=== PATIENT | female | born 1950 | race Caucasian/White ===

== ENCOUNTER 2016-08-17 17:27 | Inpatient (IN) ==
[2016-08-17] MEDS ORDERED: methylPREDNISolone 125 MG/2 ML VIAL IVP ONE (17:52)
[2016-08-17] MEDS ORDERED: Ipratropium/Albuterol Neb 3 ML IH ONE (17:52)
--- NOTE | 2016-08-17 17:57 | Emergency Department Note ---
Disposition Clinical Impression: Acute exacerbation of chronic obstructive airways disease Congestive heart failure Qualifiers: Congestive heart failure type: unspecified congestive heart failure type Congestive heart failure chronicity: acute Qualified Code(s): I50.9 - Heart failure, unspecified Disposition: Admitted As Inpatient Condition: Fair Referrals: Flor Nassar CNP [Primary Care Provider] - Forms: ED Satisfaction Letter Time of Disposition: 18:28 SOB HPI - General Chief Complaint: ED Shortness of Breath/Dyspnea Stated Complaint: jose Time Seen by Provider: 08/17/16 17:28 Source: patient Mode of arrival: EMS Limitations: no limitations Nursing Notes Reviewed: Yes Vital Signs Reviewed: Yes - History of Present Illness 65-year-old COPD comes in complaining of increasing shortness of breath. Thinks that she may have pneumonia. Pt Subjective Complaint: shortness of breath, cough Onset (ago): day(s) Severity: moderate Consistency/Duration: constant Improves with: nothing Worsens with: exertion Known history of: COPD Associated symptoms: Reports: cough, wheezing. Denies: chest pain, fever Treatment prior to arrival: none - Related Data Home Medications Medication Instructions Recorded Confirmed Albuterol Sulfate [Proair Hfa] 2 puff IH Q4H PRN 09/16/15 07/04/16 Amlodipine [Norvasc] 5 mg PO QAM 09/16/15 07/04/16 Budesonide/Formoterol 160/4.5 2 puff IH BIDR 09/16/15 07/04/16 [Symbicort 160/4.5] Diazepam [Valium] 5 mg PO HS 09/16/15 07/04/16 Furosemide [Lasix] 40 mg PO QAM 09/16/15 07/04/16 Ipratropium/Albuterol Sulfate 4 gm IH QID PRN 09/16/15 07/04/16 [Combivent Respimat Inhal Cascade] Lansoprazole [Prevacid] 30 mg PO BID 09/16/15 07/04/16 Oxycodone HCl/Acetaminophen 1 tab PO Q4H PRN 09/16/15 07/04/16 [Percocet 10-325 mg Tablet] Potassium Chloride [K-Tab ER] 10 meq PO QPM 09/16/15 07/04/16 Pregabalin [Lyrica] 150 mg PO TID 09/16/15 07/04/16 Roflumilast [Daliresp] 500 mcg PO QAM 09/16/15 07/04/16 Ropinirole HCl [Requip] 2 mg PO 1-2XD 09/16/15 07/04/16 Tiotropium [Spiriva] 18 mcg IH DAILY 09/16/15 07/04/16 Allergies Allergy/AdvReac Type Severity Reaction Status Date / Time No Known Allergies Allergy Verified 08/17/16 17:38 Constitutional: Denies: fever, chills, weakness, weight change Eyes: Denies: eye pain, eye discharge, vision change ENT ED: Denies: ear pain, throat pain, dental pain, hearing loss, epistaxis, congestion, dysphagia Cardiovascular: Denies: chest pain, palpitations, dyspnea on exertion, edema, syncope Respiratory: Reports: cough, dyspnea, wheezes. Denies: hemoptysis, stridor Gastrointestinal: Denies: abdominal pain, nausea, vomiting, diarrhea, constipation, hematemesis, melena, hematochezia Genitourinary: Denies: dysuria, frequency, hematuria, discharge Musculoskeletal: Denies: back pain, neck pain, arthralgia, myalgia Integumentary: Denies: rash, abrasion, lesions Neurological: Denies: headache, weakness, numbness, paresthesias, confusion, abnormal gait, vertigo Psychiatric: Denies: anxiety, depression, suicidal thoughts, homicidal thoughts , auditory hallucinations, visual hallucinations Endocrine: Denies: fatigue Hematological/Lymphatic: Denies: easy bleeding, easy bruising Allergic/Immunologic: Denies: facial swelling, urticaria Past Medical History - Past Medical History Medical history: Reports: asthma, COPD, hyperlipidemia, hypertension Surgical history: Reports: no surgical history Psychiatric history: Reports: anxiety, depression MANIFOLD OPERATOR history: Reports: no MANIFOLD OPERATOR history - Social History Smoking Status: Current every day smoker Smokeless Tobacco Status: No Alcohol use: Reports: rarely, occasionally Drug use: Reports: none Physical Exam - General General appearance: alert, in no apparent distress - Head Head exam: atraumatic, normocephalic, normal inspection - Eye Eye exam: Present: normal appearance, PERRL, EOMI - ENT ENT exam: normal exam, normal oropharynx, mucous membranes moist - Neck Neck exam: Present: normal inspection, full ROM, trachea midline - Chest Chest inspection: Present: normal inspection, symmetric chest wall rise - Respiratory Respiratory exam: Present: wheezes, accessory muscle use, prolonged expiratory phase - Cardiovascular Cardiovascular exam: Present: regular rate, normal rhythm, normal heart sounds - Abdominal Exam Abdominal exam: Present: soft, Non-Tender. Absent: tenderness, distention, guarding, rebound, rigidity - Extremities Exam Extremities exam: Present: normal inspection, full ROM. Absent: tenderness, pedal edema - Expanded Lower Extremity Exam Neurovascular/Tendon exam: Absent: motor deficit, sensory deficit, tendon deficit Gait: observed and normal - Back Exam Back exam: Present: normal inspection, full ROM. Absent: tenderness - Neurological Exam Neurological exam: Present: alert, oriented X3 - Psychiatric Psychiatric exam: Present: normal affect, normal mood - Skin Skin exam: Present: warm, dry, intact, normal color Course - Reevaluation(s) Reevaluation #1: 65-year-old comes in with COPD exacerbation. Patient's given breathing treatments steroids and some improvement. Chest x-ray shows some mild congestion with a slight elevation in her BNP Lasix and IV antibiotics. She will be admitted. Time: 18:58 - Consultations Consultation #1: Discussed with Dr. Terrazas, admit. Time: 18:56 Vital Signs Temperature 98.0 F 08/17/16 17:35 Pulse Rate 80 08/17/16 17:35 Respiratory Rate 22 08/17/16 17:35 Blood Pressure 143/78 08/17/16 17:35 O2 Sat by Pulse Oximetry 92 L 08/17/16 17:35 Temperature 98.0 F 08/17/16 17:35 Pulse Rate 80 08/17/16 17:35 Respiratory Rate 16 08/17/16 18:14 Blood Pressure 143/78 08/17/16 17:35 O2 Sat by Pulse Oximetry 93 L 08/17/16 18:14 Oxygen Delivery Oxygen Delivery Room Air Shortness of Breath/Dyspnea - Lab Data Result diagrams: 08/17/16 17:50 08/17/16 17:50 Lab Results 08/17/16 08/17/16 08/17/16 Range/Units 17:50 17:50 17:50 WBC 6.4 (4.3-11.1) K/mcL RBC 4.02 (3.82-4.97) M/mcL Hgb 12.1 (11.5-15.4) g/dL Hct 38.8 (35.3-44.9) % MCV 96.5 (83.0-100.0) fL MCH 30.1 (28.0-33.3) pg MCHC 31.2 L (31.6-35.5) g/dL RDW 14.3 (11.5-14.5) % Plt Count 199 (140-400) K/mcL MPV 11.5 (9.4-12.4) fL Immature Gran % 0.8 (0-4) % Seg Neutrophils % 65.6 % Lymphocytes % 16.2 % Monocytes % 13.7 % Eosinophils % 3.1 % Basophils % 0.6 % Neutrophils # 4.2 (1.6-8.9) K/mcL Lymphocytes # 1.0 (0.6-4.6) K/mcL Monocytes # 0.9 (0.0-1.3) K/mcL Eosinophils # 0.2 (0.0-0.6) K/mcL Basophils # 0.0 (0.0-0.2) K/mcL PT 10.8 (9.4-12.1) Seconds INR 1.0 APTT 24.4 L (26.0-36.0) Seconds Sodium 136 (136-145) mEq/L Potassium 3.4 L (3.5-4.5) mEq/L Chloride 92 L (98-109) mEq/L Carbon Dioxide 34 H (19-29) mEq/L BUN 9 (7-20) mg/dL Creatinine 0.70 (0.57-1.11) mg/dL Est GFR ( Amer) > 60 (> 60) Est GFR (Non-Af Amer) > 60 (> 60) BUN/Creatinine Ratio 13 (6-26) Glucose 96 (70-99) mg/dL Calculated Osmolality 281 (280-300) Lactic Acid (0.5-2.2) mmol/L Calcium 9.2 (8.6-10.8) mg/dL Troponin I (0-0.03) ng/mL B-Natriuretic Peptide (0-100) pg/mL 08/17/16 08/17/16 08/17/16 Range/Units 17:50 17:50 18:33 WBC (4.3-11.1) K/mcL RBC (3.82-4.97) M/mcL Hgb (11.5-15.4) g/dL Hct (35.3-44.9) % MCV (83.0-100.0) fL MCH (28.0-33.3) pg MCHC (31.6-35.5) g/dL RDW (11.5-14.5) % Plt Count (140-400) K/mcL MPV (9.4-12.4) fL Immature Gran % (0-4) % Seg Neutrophils % % Lymphocytes % % Monocytes % % Eosinophils % % Basophils % % Neutrophils # (1.6-8.9) K/mcL Lymphocytes # (0.6-4.6) K/mcL Monocytes # (0.0-1.3) K/mcL Eosinophils # (0.0-0.6) K/mcL Basophils # (0.0-0.2) K/mcL PT (9.4-12.1) Seconds INR APTT (26.0-36.0) Seconds Sodium (136-145) mEq/L Potassium (3.5-4.5) mEq/L Chloride (98-109) mEq/L Carbon Dioxide (19-29) mEq/L BUN (7-20) mg/dL Creatinine (0.57-1.11) mg/dL Est GFR ( Amer) (> 60) Est GFR (Non-Af Amer) (> 60) BUN/Creatinine Ratio (6-26) Glucose (70-99) mg/dL Calculated Osmolality (280-300) Lactic Acid 0.6 (0.5-2.2) mmol/L Calcium (8.6-10.8) mg/dL Troponin I 0.01 (0-0.03) ng/mL B-Natriuretic Peptide 205 H (0-100) pg/mL - EKG Data EKG attestation: Yes I reviewed and interpreted this EKG. EKG shows normal: Reports: sinus rhythm Rate: Reports: normal Rhythm: Reports: NSR Interpretation: Reports: no acute changes
[2016-08-17 18:04] LABS: Basophils % 0.6 %; Eosinophils # 0.2 K/mcL (0.0-0.6); Eosinophils % 3.1 %; Hematocrit 38.8 % (35.3-44.9); Hemoglobin 12.1 g/dL (11.5-15.4); Immature Granulocytes % 0.8 % (0-4); Lymphocytes % 16.2 %; Mean Corpuscular HGB Conc 31.2 g/dL (31.6-35.5); Mean Corpuscular Hemoglobin 30.1 pg (28.0-33.3); Mean Corpuscular Volume 96.5 fL (83.0-100.0); Mean Platelet Volume 11.5 fL (9.4-12.4); Monocytes # 0.9 K/mcL (0.0-1.3); Monocytes % 13.7 %; Neutrophils # 4.2 K/mcL (1.6-8.9); Platelet Count 199 K/mcL (140-400); Red Blood Count 4.02 M/mcL (3.82-4.97); Red Cell Distribution Width 14.3 % (11.5-14.5); Segmented Neutrophils % 65.6 %
[2016-08-17 18:09] LABS: Prothrombin Time 10.8 Seconds (9.4-12.1)
[2016-08-17 18:12] LABS: Activated Partial Thrombo Time 24.4 Seconds (26.0-36.0)
[2016-08-17 18:16] LABS: BUN/Creatinine Ratio 13 (6-26); Blood Urea Nitrogen 9 mg/dL (7-20); Calcium 9.2 mg/dL (8.6-10.8); Carbon Dioxide 34 mEq/L (19-29); Chloride 92 mEq/L (98-109); Glucose 96 mg/dL (70-99); Osmolality,Calculated 281 (280-300); Potassium 3.4 mEq/L (3.5-4.5); Sodium 136 mEq/L (136-145); eGFR For African Americans > 60 (> 60); eGFR For Non-African Americans > 60 (> 60)
[2016-08-17] MEDS ORDERED: Furosemide 40 MG/4 ML VIAL IVP ONE (18:48)
[2016-08-17] MEDS ORDERED: Levofloxacin 750 MG/150 ML 750 MG/150 ML BAG IVPB ONE (18:57)
[2016-08-17] MEDS ORDERED: Naloxone 0.4 MG/ML INJ IVP PRN (21:41)
[2016-08-17] MEDS ORDERED: Albuterol 2.5 MG/3 ML NEBULIZER IH PRN (21:55)
--- NOTE | 2016-08-17 22:19 | Internal Med History&Physical ---
<Simona Gutierrez - Last Filed: 08/17/16 22:10> Date of Encounter: 08/17/16 Time of Encounter: 21:30 Assessment and Plan (1) Acute diastolic (congestive) heart failure Current visit: Yes Status: Acute 1 echo 2015-EF 65% moderate diastolic dysfunction. Patient presented with increasing shortness of breath lower extremity edema BNP was 205 chest x-ray with coronary edema. Oxygen as needed to maintain SPO2 greater than 92% 2 Lasix IV 20 mg twice a day 3. Intake and output daily weights 4. Low-sodium diet, 1500 mL fluid restriction (2) Acute exacerbation of chronic obstructive airways disease Current visit: Yes Status: Acute 1 patient is having increasing shortness of breath according increase oxygen usage asterixis, 1% she has audible wheezes. She seemed Solu-Medrol in the ER will continue with 40 mg IV and taper 2 oxygen as needed and maintain SP 292% 3 bronchodilators 4 continue with daily resp 5 encourage patient to stop smoking 6 Levaquin (3) DVT prophylaxis Current visit: No Status: Acute 1 heparin subcutaneous (4) HOWARD (obstructive sleep apnea) Current visit: No Status: Acute 1 we will continue with CPAP at night (5) Tobacco abuse Current visit: Yes Status: Acute 1 encouraged patient to stop smoking-nicotine patch Internal Medicine - H&P: HPI Chief complaint: SOB Admitted From: Home Plans for Post Hospital Care: Home History of present illness: Ms. Barrera is a 65 year old female with a past medical history of hypertension COPD oxygen dependent HOWARD aortic aneurysm tobacco abuse. Patient has been experiencing increasing source of breath on exertion for the past 5-6 days she has required increased oxygen use. She has been using breathing treatments and increasing oxygen from 2-1/2 L to 4 L with little relief. She has had a productive cough with brown sputum subjective fever and swelling in lower extremities. She denies any nausea vomiting or diarrhea chest pain or abdominal pain. She was brought to the emergency department for further workup and evaluation on presentation patient's oxygen saturation was low 90s she was given breathing treatments as well as Solu-Medrol IV. Chest x-ray did reveal mildly enlarged cardiac silhouette with prominent pulmonary vascular mild patchy bilateral opacifications possibly represent pulmonary edema. Work revealed BNP of 205 no leukocytosis some hypokalemia potassium 3.4. Troponin was negative. She was given IV Lasix as well as IV antibiotics and was admitted for further workup and evaluation. Presently the patient does have a faint audible wheeze, and lower extremity swelling. Family member at bedside reports the patient was receiving Lasix and hydrochlorothiazide however recently her Lasix was discontinued. Lung murillo have scattered wheezes throughout she is on 4 L nasal cannula oxygen saturation 91-92% She denies any chest pain or shortness of breath this time, rest of vital signs are stable. I will repeat his case with who agrees with plan Past Med Surg Social Fam HX - Past Medical History Medical history: asthma, COPD, hyperlipidemia, hypertension Psychiatric history: anxiety, depression - Past Surgical History Surgical History: no surgical history - Social History Smoking Status: Current every day smoker Packs per day: 1-2 Smokeless Tobacco Status: No Alcohol use: rarely, occasionally Drug use: none - Family History Mother Adopted: No Living Status: Hx Family Cardiac Disorders: No Hx Family Respiratory Disorders: No Hx Family Cancer: No Internal Medicine - H&P: Meds Albuterol Sulfate [Proair Hfa] 2 puff IH Q4H PRN 09/16/15 [History] Amlodipine [Norvasc] 5 mg PO QAM 09/16/15 [History] Budesonide/Formoterol 160/4.5 [Symbicort 160/4.5] 2 puff IH BIDR 09/16/15 [ History] Lansoprazole [Prevacid] 30 mg PO BID 09/16/15 [History] Oxycodone HCl/Acetaminophen [Percocet 10-325 mg Tablet] 1 tab PO Q4H PRN [History] Potassium Chloride [K-Tab ER] 10 meq PO QPM 09/16/15 [History] Pregabalin [Lyrica] 150 mg PO TID 09/16/15 [History] Roflumilast [Daliresp] 500 mcg PO QAM 09/16/15 [History] Tiotropium [Spiriva] 18 mcg IH DAILY 09/16/15 [History] Albuterol Neb [Proventil Neb] 2.5 mg IH Q4H PRN 08/17/16 [History] ClonazePAM [Klonopin] 1 mg PO DAILY 08/17/16 [History] Docusate [Colace] 100 mg PO BID PRN 08/17/16 [History] Hydrochlorothiazide 25 mg PO DAILY 08/17/16 [History] Loratadine [Claritin] 10 mg PO DAILY 08/17/16 [History] PredniSONE 5 mg PO DAILY 08/17/16 [History] Ropinirole [Requip] 3 mg PO HS 08/17/16 [History] Simvastatin [Zocor] 40 mg PO HS 08/17/16 [History] Allergies No Known Allergies Allergy (Verified 08/17/16 17:38) All Systems PM: A 10-system review of systems was performed and is negative for pertinent findings except as documented above in the HPI. - Constitutional Constitutional: fatigue, fever(s) - Cardiovascular Cardiovascular ROS IM: dyspnea on exertion - Respiratory Respiratory: cough, dyspnea on exertion, wheezing, change in phlegm color - Gastrointestinal Gastrointestinal: no abdominal pain, no diarrhea, no hematemesis, no hematochezia, no melena, no nausea, no vomiting - Genitourinary Genitourinary: no change in urinary stream, no dysuria, no flank pain, no hematuria - Musculoskeletal Musculoskeletal ROS IM: back pain - Integumentary Integumentary IM: no rash, no unusual bruising - Neurological Neurological ROS: no confusion, no convulsions, no focal weakness, no numbness, no tingling, no tremor(s) - Constitutional Vitals: Temp Pulse Resp BP Pulse Ox 97.6 F 87 18 132/76 91 L 08/17/16 20:19 08/17/16 20:19 08/17/16 20:19 08/17/16 20:19 08/17/16 20:19 General appearance: Present: A&O X 3, obese, answers questions appropriately - Head Head exam: Present: atraumatic, normocephalic - Neck Neck exam general surgery: Present: supple, trachea midline. Absent: lymphadenopathy - Respiratory Respiratory exam: Present: wheezes. Absent: accessory muscle use, rales, rhonchi Additional comments: Audible wheezes - Cardiovascular Cardiovascular exam: Present: RRR, +S1, +S2. Absent: diastolic murmur, gallop, rubs, systolic murmur - GI/Abdominal GI/Abdominal exam: Present: normal bowel sounds, soft, no peritoneal signs. Absent: distended, tenderness - Extremities Exam Extremities exam: Present: pedal edema, warm, radial pulses palpable and symetrical. Absent: calf tenderness, cyanotic Additional comments: +2 pitting edema to right lower extremity +1 edema to left lower extremity - Neurological Exam Neurological exam: Present: CN II-XII intact, oriented X3, no focal deficits. Absent: pronater drift, facial droop, speech deficit - Skin Skin exam: Present: dry, intact Internal Med - H&P Results - Labs CBC & Chem 7: 08/17/16 17:50 08/17/16 17:50 - EKG Data EKG shows normal: sinus rhythm - EKG Data Prior EKG available for review: yes When compared to previous EKG: there is no significant change Interpretation IM: normal EKG EKG comments: 08/17/16 22:[address] Doss - Diagnostic Studies Chest x-ray Additional comments: Per radiology read-mildly enlarged cardiac silhouette with prominence of the pulmonary vasculature mild partially bilateral opacification possibly representing pulmonary edema 2 small left pleural effusion is difficult to exclude <Keyla Doss - Last Filed: 08/19/16 11:36> Date of Encounter: 08/17/16 Internal Medicine - H&P: HPI History of present illness: Ms. Barrera is a 65 year old female All Systems PM: A 10-system review of systems was performed and is negative for pertinent findings except as documented above in the HPI. - Constitutional Vitals: Temp Pulse Resp BP Pulse Ox 97.8 F 82 17 142/82 91 L 08/19/16 08:01 08/19/16 08:01 08/19/16 08:01 08/19/16 08:01 08/19/16 08:01 Internal Med - H&P Results - Labs CBC & Chem 7: 08/18/16 03:57 08/19/16 03:16 Labs: BMP 08/19/16 03:16 Sodium 141 Potassium 4.3 Chloride 95 L Carbon Dioxide 37 H BUN 19 Creatinine 0.75 Glucose 140 H Calcium 9.1 - Impressions ITS Impressions Chest CT 08/19/16 09:00 IMPRESSION: 1. Bronchial wall thickening in the left lower lobe associated with a consolidation suspicious for bronchitis. 2. Stable mild cardiomegaly. 3. Coronary artery disease. 4. Emphysema. 5. Old left anterior healed rib fractures and subacute right lateral eighth rib fracture. D/ / 08/19/2016 09:41:25 Owen Noland MD / trent Interpreting Provider: Owen Noland MD - Attending Attestation Medical decision-making was reviewed with the COMPRESSOR MECH[employer]IC BUS and agree with the treatment plan
[2016-08-17] MEDS: Pregabalin 75 MG CAPSULE PO SCH (22:39)
[2016-08-17] MEDS: Nicotine 14 MG PATCH.TD24 TD SCH (22:39)
[2016-08-17] MEDS: *HR* OxyCODONE/APAP 10/325 TABLET PO PRN (22:42)
[2016-08-17] MEDS: Ipratropium/Albuterol Neb 3 ML IH SCH (22:58)
[2016-08-17] MEDS: Budesonide/Formoterol 160/4.5 MDI IH SCH (22:58)
[2016-08-18] MEDS ORDERED: methylPREDNISolone 125 MG/2 ML VIAL IVP SCH
[2016-08-18] MEDS: Ipratropium/Albuterol Neb 3 ML IH SCH ×4 (03:58→23:57)
[2016-08-18] MEDS: methylPREDNISolone 125 MG/2 ML VIAL IVP SCH ×2 (05:23→16:24)
[2016-08-18] MEDS: *HR* Heparin 5,000 UNIT/ML VIAL SQ SCH ×2 (05:41→16:24)
[2016-08-18 05:52] LABS: Basophils % 0.4 %; Hematocrit 40.1 % (35.3-44.9); Hemoglobin 12.7 g/dL (11.5-15.4); Immature Granulocytes % 2.5 % (0-4); Lymphocytes # 0.5 K/mcL (0.6-4.6); Lymphocytes % 9.7 %; Mean Corpuscular HGB Conc 31.7 g/dL (31.6-35.5); Mean Corpuscular Volume 97.8 fL (83.0-100.0); Mean Platelet Volume 12.3 fL (9.4-12.4); Monocytes # 0.1 K/mcL (0.0-1.3); Monocytes % 2.1 %; Platelet Count 216 K/mcL (140-400); Red Cell Distribution Width 14.5 % (11.5-14.5); Segmented Neutrophils % 85.3 %
[2016-08-18 06:08] LABS: BUN/Creatinine Ratio 19 (6-26); Blood Urea Nitrogen 16 mg/dL (7-20); Calcium 9.5 mg/dL (8.6-10.8); Carbon Dioxide 33 mEq/L (19-29); Chloride 94 mEq/L (98-109); Glucose 139 mg/dL (70-99); Osmolality,Calculated 291 (280-300); Potassium 3.9 mEq/L (3.5-4.5); Sodium 139 mEq/L (136-145); eGFR For African Americans > 60 (> 60); eGFR For Non-African Americans > 60 (> 60)
[2016-08-18] MEDS: *HR* OxyCODONE/APAP 10/325 TABLET PO PRN ×2 (08:15→14:43)
[2016-08-18] MEDS ORDERED: clonazePAM 1 MG TABLET PO SCH (09:00)
[2016-08-18] MEDS ORDERED: Furosemide 40 MG/4 ML VIAL IVP SCH (09:00)
[2016-08-18] MEDS ORDERED: Pregabalin 75 MG CAPSULE PO SCH (09:00)
[2016-08-18] MEDS: amLODIPine 5 MG TABLET PO SCH (09:32)
[2016-08-18] MEDS: Levofloxacin 750 MG/150 ML 750 MG/150 ML BAG IVPB SCH (09:32)
[2016-08-18] MEDS: Furosemide 40 MG/4 ML VIAL IVP SCH ×2 (09:32→20:12)
[2016-08-18] MEDS: Pregabalin 75 MG CAPSULE PO SCH ×3 (09:32→20:12)
[2016-08-18] MEDS: Nicotine 14 MG PATCH.TD24 TD SCH (09:35)
--- NOTE | 2016-08-18 10:24 | Internal Med Progress Note ---
Date of Encounter: 08/18/16 Time of Encounter: 09:30 - Assessment and plan (1) Acute diastolic (congestive) heart failure Current Visit: Yes Status: Acute Assessment and plan: Continue diuresis with IV Lasix, renal functioning remains normal today, we will continue to trend. Patient still endorsing shortness of breath but not more so than usual. She states the swelling in her legs is improving. On examination, patient with fair to poor aeration throughout with diffuse expiratory wheezing. 1+ pitting edema noted to bilateral lower extremities. Chest x-ray consistent with pulmonary edema. We will continue pulmonary toilet and levofloxacin. Treating for both COPD exacerbation and CHF exacerbation. Echocardiogram pending. ITS Impressions Chest X-Ray 08/17/16 17:52 IMPRESSION: 1. Limited exam. 2. Mildly enlarged cardiac silhouette with prominence of the pulmonary vasculature mild patchy bilateral opacification possibly representing pulmonary edema. 3. A small left pleural effusion is difficult to exclude. D/ / Tavo Briscoe MD / Tavo Briscoe MD Interpreting Provider: Tavo Briscoe MD (2) Acute exacerbation of chronic obstructive airways disease Current Visit: Yes Status: Acute Assessment and plan: See prior note for CHF exacerbation. (3) Acute and chronic respiratory failure Current Visit: Yes Status: Acute Assessment and plan: Patient stating she uses 2 L per nasal cannula continuously at home, she is currently on 5 L, will continue supplemental oxygenation as needed. (4) Hypokalemia Current Visit: Yes Status: Resolved (5) Tobacco abuse Current Visit: Yes Status: Chronic Assessment and plan: Patient states she recently changed from 2 packs per day down to one pack per day, nicotine replacement therapy. Patient denied counseling at this time (6) DVT prophylaxis Current Visit: No Status: Acute Assessment and plan: Subcutaneous heparin (7) HOWARD (obstructive sleep apnea) Current Visit: No Status: Chronic Assessment and plan: Noncompliant with CPAP however will continue to offer to her. (8) Obese Current Visit: Yes Status: Chronic - Subjective Interval history: Patient seen and examined. On examination, patient sitting upright in bed watching television. Patient stating she is still short of breath but not more so than usual. She states she is starting to improve. She initially demanded that she go home today but stated she would be willing to stay overnight for continued diuresis and treatment. - Constitutional Vitals: Temp Pulse Resp BP Pulse Ox 97.9 F 87 17 147/87 89 L 08/18/16 07:06 08/18/16 07:06 08/18/16 07:06 08/18/16 07:06 08/18/16 07:06 General appearance: Present: mild distress, A&O X 3, pleasant, obese, answers questions appropriately - Head Head exam: Present: atraumatic, normocephalic - Eye Eye exam: Present: PERRL, conjuntiva pink, sclera anicteric Pupils: Present: PERRL - Neck Neck exam general surgery: Present: supple, trachea midline. Absent: lymphadenopathy - Respiratory Respiratory exam: Present: accessory muscle use, decreased breath sounds, prolonged expiratory phase, respiratory distress, wheezes. Absent: rales, rhonchi - Cardiovascular Cardiovascular exam: Present: RRR, +S1, +S2. Absent: diastolic murmur, gallop, rubs, systolic murmur - GI/Abdominal GI/Abdominal exam: Present: distended, normal bowel sounds, soft, no peritoneal signs. Absent: tenderness - Extremities Exam Extremities exam: Present: pedal edema (1+ bilaterally), warm, radial pulses palpable and symetrical. Absent: calf tenderness, cyanotic - Neurological Exam Neurological exam: Present: alert, CN II-XII intact, oriented X3, no focal deficits, strengths equal and symetr throughout. Absent: pronater drift, facial droop, speech deficit - Skin Skin exam: Present: dry, intact, normal color, warm Internal Medicine: Result - Labs CBC & Chem 7: 08/18/16 03:57 08/18/16 03:57 Labs: Short CBC 08/18/16 Range/Units 03:57 WBC 4.7 (4.3-11.1) K/mcL Hgb 12.7 (11.5-15.4) g/dL Hct 40.1 (35.3-44.9) % Plt Count 216 (140-400) K/mcL Neutrophils # 4.0 (1.6-8.9) K/mcL BMP 08/18/16 03:57 Sodium 139 Potassium 3.9 Chloride 94 L Carbon Dioxide 33 H BUN 16 Creatinine 0.86 Glucose 139 H Calcium 9.5 - ABG Interpretation ABG results: PT/INR, D-dimer PT 10.8 Seconds (9.4-12.1) 08/17/16 17:50 Consult Discharge Plan - Plan Instructions: Cigarette Smoking and Your Health (GEN)
[2016-08-18] MEDS: Budesonide/Formoterol 160/4.5 MDI IH SCH ×2 (10:27→23:57)
[2016-08-18] MEDS: (Roflumilast [Daliresp] 500 MCG) PO SCH (10:31)
--- NOTE | 2016-08-18 11:42 | Electrocardiograph Report ---
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
[2016-08-18] MEDS: clonazePAM 1 MG TABLET PO SCH (20:11)
[2016-08-19] MEDS: Saline Nasal Spray 44 ML BOTTLE NS PRN ×2 (01:20→06:23)
[2016-08-19] MEDS: *HR* OxyCODONE/APAP 10/325 TABLET PO PRN ×4 (01:26→22:15)
[2016-08-19 04:36] LABS: BUN/Creatinine Ratio 25 (6-26); Blood Urea Nitrogen 19 mg/dL (7-20); Calcium 9.1 mg/dL (8.6-10.8); Carbon Dioxide 37 mEq/L (19-29); Chloride 95 mEq/L (98-109); Glucose 140 mg/dL (70-99); Osmolality,Calculated 297 (280-300); Potassium 4.3 mEq/L (3.5-4.5); Sodium 141 mEq/L (136-145); eGFR For African Americans > 60 (> 60); eGFR For Non-African Americans > 60 (> 60)
[2016-08-19] MEDS: Ipratropium/Albuterol Neb 3 ML IH SCH ×4 (04:46→20:33)
[2016-08-19] MEDS: methylPREDNISolone 125 MG/2 ML VIAL IVP SCH ×2 (06:21→19:51)
[2016-08-19] MEDS: *HR* Heparin 5,000 UNIT/ML VIAL SQ SCH ×2 (06:21→19:51)
[2016-08-19] MEDS: Levofloxacin 750 MG/150 ML 750 MG/150 ML BAG IVPB SCH (08:12)
[2016-08-19] MEDS: Nicotine 14 MG PATCH.TD24 TD SCH (08:13)
[2016-08-19] MEDS: Pregabalin 75 MG CAPSULE PO SCH ×3 (08:13→22:00)
[2016-08-19] MEDS: (Roflumilast [Daliresp] 500 MCG) PO SCH (08:14)
[2016-08-19] MEDS: amLODIPine 5 MG TABLET PO SCH (08:14)
[2016-08-19] MEDS: Furosemide 40 MG/4 ML VIAL IVP SCH ×2 (08:15→22:01)
[2016-08-19] MEDS: Budesonide/Formoterol 160/4.5 MDI IH SCH ×2 (11:34→20:33)
--- NOTE | 2016-08-19 14:38 | Internal Med Progress Note ---
Date of Encounter: 08/19/16 Time of Encounter: 14:15 - Assessment and plan (1) Acute diastolic (congestive) heart failure Current Visit: Yes Status: Acute Assessment and plan: Overall, patient is improving. No lower extremity edema present today. Patient continues to be upset with her fluid restricted diet, education reinforced. Will allow for small amounts of caffeine per day. Echocardiogram revealing ejection fraction of 70%, mild diastolic dysfunction and moderate pulmonary hypertension. In comparison of her echocardiogram from last year, diastolic dysfunction appears slightly improved, now mild, was moderate. Ejection fraction of equivocal. We will continue gentle diuresis, fluid restricted diet. Chest CT obtained given her continued increase in need for oxygenation. She is on 2 L at home, [address] unremarkable and revealing bronchitis. We will continue to treat for COPD exacerbation as well. Impressions Chest CT 08/19/16 09:00 IMPRESSION: 1. Bronchial wall thickening in the left lower lobe associated with a consolidation suspicious for bronchitis. 2. Stable mild cardiomegaly. 3. Coronary artery disease. 4. Emphysema. 5. Old left anterior healed rib fractures and subacute right lateral eighth rib fracture. D/ / 08/19/2016 09:41:25 Owen Noland MD / trent Interpreting Provider: Owen Noland MD Echocardiogram impressions: LVEF 70%. Normal LV chamber size and function. Mild concentric left ventricular hypertrophy. Mildly dilated left ventricle. Mild left ventricular diastolic dysfunction. Normal rectal ventricular structure and function. Moderately dilated left atrium. Moderate pulmonary hypertension. No significant valvular dysfunction. Echocardiogram impressions from 09/18/15: Moderately dilated left ventricle. Normal LV systolic function, LVEF 65%. Mild concentric left ventricular hypertrophy. Moderate left ventricular diastolic dysfunction. Normal right ventricular structure and function. Moderately dilated left atrium. No significant valvular dysfunction. Unable to estimate RVSP due to lack of TR jet. 08/18/16 Continue diuresis with IV Lasix, renal functioning remains normal today, we will continue to trend. Patient still endorsing shortness of breath but not more so than usual. She states the swelling in her legs is improving. On examination, patient with fair to poor aeration throughout with diffuse expiratory wheezing. 1+ pitting edema noted to bilateral lower extremities. Chest x-ray consistent with pulmonary edema. We will continue pulmonary toilet and levofloxacin. Treating for both COPD exacerbation and CHF exacerbation. Echocardiogram pending. ITS Impressions Chest X-Ray 08/17/16 17:52 IMPRESSION: 1. Limited exam. 2. Mildly enlarged cardiac silhouette with prominence of the pulmonary vasculature mild patchy bilateral opacification possibly representing pulmonary edema. 3. A small left pleural effusion is difficult to exclude. D/ / Tavo Briscoe MD / Tavo Briscoe MD Interpreting Provider: Tavo Briscoe MD (2) Acute exacerbation of chronic obstructive airways disease Current Visit: Yes Status: Acute Assessment and plan: See prior note for CHF exacerbation. (3) Acute and chronic respiratory failure Current Visit: Yes Status: Acute Assessment and plan: Patient stating she uses 2 L per nasal cannula continuously at home, she remains on 5 L, will continue supplemental oxygenation as needed. Chest CT obtained which was unremarkable and revealed bronchitis. Unclear causation as to the increased need for oxygenation, continuing to treat for heart failure exacerbation with gentle diuresis as well as a COPD exacerbation with steroids and nebulizers. Overall, her aeration is improving but she is not back to her baseline. (4) Hypokalemia Current Visit: Yes Status: Resolved (5) Tobacco abuse Current Visit: Yes Status: Chronic Assessment and plan: Patient states she recently changed from 2 packs per day down to one pack per day, nicotine replacement therapy. Patient denied counseling at this time (6) DVT prophylaxis Current Visit: No Status: Acute Assessment and plan: Subcutaneous heparin (7) HOWARD (obstructive sleep apnea) Current Visit: No Status: Chronic Assessment and plan: Noncompliant with CPAP however will continue to offer to her. (8) Obese Current Visit: Yes Status: Chronic - Subjective Interval history: Patient seen and examined. On examination, patient initially asleep in high Staley's position and awakened easily to voice. She was alert and oriented 3. She denies pain at this time. She states her shortness of breath is improving but not back to baseline. She is now informing me that she has been out of several of her medications including Lasix for months. - Constitutional Vitals: Temp Pulse Resp BP Pulse Ox 97.5 F L 68 18 109/64 95 08/19/16 12:00 08/19/16 12:00 08/19/16 12:00 08/19/16 12:00 08/19/16 12:00 General appearance: Present: mild distress, A&O X 3, pleasant, obese, answers questions appropriately - Head Head exam: Present: atraumatic, normocephalic - Eye Eye exam: Present: PERRL, conjuntiva pink, sclera anicteric Pupils: Present: PERRL - Neck Neck exam general surgery: Present: supple, trachea midline. Absent: lymphadenopathy - Respiratory Respiratory exam: Present: accessory muscle use, decreased breath sounds, prolonged expiratory phase, respiratory distress, rhonchi, wheezes. Absent: rales - Cardiovascular Cardiovascular exam: Present: RRR, +S1, +S2. Absent: diastolic murmur, gallop, rubs, systolic murmur - GI/Abdominal GI/Abdominal exam: Present: distended, normal bowel sounds, soft, no peritoneal signs. Absent: tenderness - Extremities Exam Extremities exam: Present: warm, radial pulses palpable and symetrical. Absent : calf tenderness, cyanotic, pedal edema - Neurological Exam Neurological exam: Present: alert, CN II-XII intact, oriented X3, no focal deficits, strengths equal and symetr throughout. Absent: pronater drift, facial droop, speech deficit - Skin Skin exam: Present: dry, intact, pallor, warm Internal Medicine: Result - Labs CBC & Chem 7: 08/18/16 03:57 08/19/16 03:16 Labs: BMP 08/19/16 03:16 Sodium 141 Potassium 4.3 Chloride 95 L Carbon Dioxide 37 H BUN 19 Creatinine 0.75 Glucose 140 H Calcium 9.1 - ABG Interpretation ABG results: PT/INR, D-dimer PT 10.8 Seconds (9.4-12.1) 08/17/16 17:50 - Impressions Impressions Chest CT 08/19/16 09:00 IMPRESSION: 1. Bronchial wall thickening in the left lower lobe associated with a consolidation suspicious for bronchitis. 2. Stable mild cardiomegaly. 3. Coronary artery disease. 4. Emphysema. 5. Old left anterior healed rib fractures and subacute right lateral eighth rib fracture. D/ / 08/19/2016 09:41:25 Owen Noland MD / trent Interpreting Provider: Owen Noland MD Consult Discharge Plan - Plan Instructions: Cigarette Smoking and Your Health (GEN) Referrals: Flor Nassar CNP [Primary Care Provider] - 09/01/16 1:00 pm
[2016-08-19] MEDS ORDERED: Benzonatate 100 MG CAPSULE PO PRN (14:42)
[2016-08-19] MEDS ORDERED: Albuterol 2.5 MG/3 ML NEBULIZER IH PRN (14:44)
[2016-08-19] MEDS: Acetylcysteine 10% 2 ML INHSOL IH SCH ×2 (16:13→20:33)
[2016-08-19] MEDS: clonazePAM 1 MG TABLET PO SCH (22:00)
[2016-08-20] MEDS: Ipratropium/Albuterol Neb 3 ML IH SCH ×5 (00:25→15:18)
[2016-08-20] MEDS: Acetylcysteine 10% 2 ML INHSOL IH SCH ×5 (00:25→15:18)
[2016-08-20] MEDS: methylPREDNISolone 125 MG/2 ML VIAL IVP SCH ×2 (05:14→16:33)
[2016-08-20 05:15] LABS: BUN/Creatinine Ratio 25 (6-26); Blood Urea Nitrogen 18 mg/dL (7-20); Calcium 9.2 mg/dL (8.6-10.8); Carbon Dioxide 34 mEq/L (19-29); Chloride 93 mEq/L (98-109); Glucose 228 mg/dL (70-99); Osmolality,Calculated 297 (280-300); Sodium 139 mEq/L (136-145); eGFR For African Americans > 60 (> 60); eGFR For Non-African Americans > 60 (> 60)
[2016-08-20] MEDS: *HR* Heparin 5,000 UNIT/ML VIAL SQ SCH ×2 (05:15→17:08)
[2016-08-20 05:32] LABS: Potassium 4.2 mEq/L (3.5-4.5)
[2016-08-20] MEDS: Pregabalin 75 MG CAPSULE PO SCH ×2 (07:56→14:15)
[2016-08-20] MEDS: amLODIPine 5 MG TABLET PO SCH (07:57)
[2016-08-20] MEDS: Levofloxacin 750 MG/150 ML 750 MG/150 ML BAG IVPB SCH (07:57)
[2016-08-20] MEDS: Budesonide/Formoterol 160/4.5 MDI IH SCH (07:58)
[2016-08-20] MEDS: (Roflumilast [Daliresp] 500 MCG) PO SCH (07:59)
[2016-08-20] MEDS: *HR* OxyCODONE/APAP 10/325 TABLET PO PRN ×2 (08:02→16:33)
[2016-08-20] MEDS: Nicotine 14 MG PATCH.TD24 TD SCH (08:05)
[2016-08-20] MEDS ORDERED: Furosemide 20 MG/2 ML VIAL IVP SCH (09:00)
[2016-08-20 15:41] VITALS: BP 135/79
--- NOTE | 2016-08-20 15:52 | Discharge Summary ---
Date of Encounter: 08/20/16 Time of Encounter: 09:30 - Discharge Diagnosis (1) Acute diastolic (congestive) heart failure Priority: Primary Status: Chronic Comments: Successfully diuresed. On day of discharge, lower extremity edema had subsided and the patient denies shortness of breath above her norm. Renal functioning remained normal. She has been educated again on fluid and sodium restricted diets but readily endorses her noncompliance. Amlodipine changed to Lisinopril. Follow-up outpatient. 08/19/16 Overall, patient is improving. No lower extremity edema present today. Patient continues to be upset with her fluid restricted diet, education reinforced. Will allow for small amounts of caffeine per day. Echocardiogram revealing ejection fraction of 70%, mild diastolic dysfunction and moderate pulmonary hypertension. In comparison of her echocardiogram from last year, diastolic dysfunction appears slightly improved, now mild, was moderate. Ejection fraction of equivocal. We will continue gentle diuresis, fluid restricted diet. Chest CT obtained given her continued increase in need for oxygenation. She is on 2 L at home, [address] unremarkable and revealing bronchitis. We will continue to treat for COPD exacerbation as well. Impressions Chest CT 08/19/16 09:00 IMPRESSION: 1. Bronchial wall thickening in the left lower lobe associated with a consolidation suspicious for bronchitis. 2. Stable mild cardiomegaly. 3. Coronary artery disease. 4. Emphysema. 5. Old left anterior healed rib fractures and subacute right lateral eighth rib fracture. D/ / 08/19/2016 09:41:25 Owen Noland MD / trent Interpreting Provider: Owen Noland MD Echocardiogram impressions: LVEF 70%. Normal LV chamber size and function. Mild concentric left ventricular hypertrophy. Mildly dilated left ventricle. Mild left ventricular diastolic dysfunction. Normal rectal ventricular structure and function. Moderately dilated left atrium. Moderate pulmonary hypertension. No significant valvular dysfunction. Echocardiogram impressions from 09/18/15: Moderately dilated left ventricle. Normal LV systolic function, LVEF 65%. Mild concentric left ventricular hypertrophy. Moderate left ventricular diastolic dysfunction. Normal right ventricular structure and function. Moderately dilated left atrium. No significant valvular dysfunction. Unable to estimate RVSP due to lack of TR jet. 08/18/16 Continue diuresis with IV Lasix, renal functioning remains normal today, we will continue to trend. Patient still endorsing shortness of breath but not more so than usual. She states the swelling in her legs is improving. On examination, patient with fair to poor aeration throughout with diffuse expiratory wheezing. 1+ pitting edema noted to bilateral lower extremities. Chest x-ray consistent with pulmonary edema. We will continue pulmonary toilet and levofloxacin. Treating for both COPD exacerbation and CHF exacerbation. Echocardiogram pending. ITS Impressions Chest X-Ray 08/17/16 17:52 IMPRESSION: 1. Limited exam. 2. Mildly enlarged cardiac silhouette with prominence of the pulmonary vasculature mild patchy bilateral opacification possibly representing pulmonary edema. 3. A small left pleural effusion is difficult to exclude. D/ / Tavo Briscoe MD / Tavo Briscoe MD Interpreting Provider: Tavo Briscoe MD (2) Acute exacerbation of chronic obstructive airways disease Priority: Primary Status: Resolved (3) Acute and chronic respiratory failure Priority: Primary Status: Acute Comments: Patient is on 2-2.5 L per nasal cannula home, she qualified for 3 L on day of discharge, prescription written. (4) Hypokalemia Priority: Primary Status: Resolved (5) Tobacco abuse Priority: Secondary Status: Chronic Comments: Patient is now down to 1 pack per day, declined smoking cessation counseling but states she really wanted to stop smoking. She declined nicotine patches upon discharge. (6) DVT prophylaxis Priority: Primary Status: Acute Comments: Subcutaneous heparin while admitted (7) HOWARD (obstructive sleep apnea) Priority: Secondary Status: Chronic Comments: Noncompliant with CPAP. Follow-up outpatient. (8) Obese Priority: Secondary Status: Chronic - Discharge Medications Prescriptions: Benzonatate [Tessalon] 200 mg PO TID PRN #30 capsule PRN Reason: Cough Furosemide [Lasix] 20 mg PO BID #60 tablet GuaiFENesin ER [Mucinex] 1,200 mg PO BID PRN #40 tbbp.12hr PRN Reason: Congestion Levofloxacin 750 mg PO DAILY #5 tablet Lisinopril [Zestril] 5 mg PO DAILY #30 tablet Oxygen 3 l IN CONT #1 each Potassium Chloride 20 meq PO DAILY #30 tab.er.prt PredniSONE 10 mg PO DAILY #80 tablet Home Medications: Albuterol Sulfate [Proair Hfa] 2 puff IH Q4H PRN 09/16/15 [History] Budesonide/Formoterol 160/4.5 [Symbicort 160/4.5] 2 puff IH BIDR 09/16/15 [ History] Lansoprazole [Prevacid] 30 mg PO BID 09/16/15 [History] Oxycodone HCl/Acetaminophen [Percocet 10-325 mg Tablet] 1 tab PO Q4H PRN [History] Pregabalin [Lyrica] 150 mg PO TID 09/16/15 [History] Roflumilast [Daliresp] 500 mcg PO QAM 09/16/15 [History] Tiotropium [Spiriva] 18 mcg IH DAILY 09/16/15 [History] Albuterol Neb [Proventil Neb] 2.5 mg IH Q4H PRN 08/17/16 [History] ClonazePAM [Klonopin] 1 mg PO DAILY 08/17/16 [History] Docusate [Colace] 100 mg PO BID PRN 08/17/16 [History] Loratadine [Claritin] 10 mg PO DAILY 08/17/16 [History] PredniSONE 5 mg PO DAILY 08/17/16 [History] Ropinirole [Requip] 3 mg PO HS 08/17/16 [History] Simvastatin [Zocor] 40 mg PO HS 08/17/16 [History] Benzonatate [Tessalon] 200 mg PO TID PRN #30 capsule 08/20/16 [Rx] Furosemide [Lasix] 20 mg PO BID #60 tablet 08/20/16 [Rx] GuaiFENesin ER [Mucinex] 1,200 mg PO BID PRN #40 tbbp.12hr 08/20/16 [Rx] Levofloxacin 750 mg PO DAILY #5 tablet 08/20/16 [Rx] Lisinopril [Zestril] 5 mg PO DAILY #30 tablet 08/20/16 [Rx] Oxygen 3 l IN CONT #1 each 08/20/16 [Rx] Potassium Chloride 20 meq PO DAILY #30 tab.er.prt 08/20/16 [Rx] PredniSONE 10 mg PO DAILY #80 tablet 08/20/16 [Rx] Allergies/Adverse Reactions: Allergies No Known Allergies Allergy (Verified 08/17/16 17:38) Procedures/tests Complete & Pending: Procedures Performed prior 72 hours Category Date Time Status CT chest wo con [CT] Routine Cat Scan 08/19/16 09:00 Draft Date of admission: 08/18/16 15:52 Primary care physician: Flor Nassar CNP Discharging clinician: Juhi Lloyd Anticipated date of discharge: 08/20/16 - Patient Status Disposition: Home, Self-Care Condition: Fair Functional capacity at discharge: independent ambulation Overall status at discharge: patient is back to baseline - Discharge Instructions Instructions: Cigarette Smoking and Your Health (GEN) Follow Up With: Flor Nassar CNP [Primary Care Provider] - 09/01/16 1:00 pm Additional Instructions: Follow-up with primary care provider as scheduled. - Diet and Activity Activity: increase activity as tolerated, wear oxygen at all times Diet: low fat, low cholesterol, low salt diet, other (Fluid restriction 1.5 L per day) Hospital course: Ms. Barrera is a 65 year old female with past medical history of diastolic heart failure, COPD on 2-2.5 L per nasal cannula continuously at home, HOWARD noncompliant with CPAP, continued tobacco abuse. Patient presented to the emergency room for chief complaint increasing shortness of breath with exertion 5-6 days prior to presentation along with increased oxygen usage. Patient had increased her home oxygen to 4 L with little relief. Patient also endorsed productive cough with brown sputum, subjective fever, and increased swelling in her lower extremities. Chest x-ray in the emergency department consistent with mild CHF. Chest CT revealing bronchitis and stable mild cardiomegaly. Patient was admitted to the hospitalist service for further evaluation and management of acute diastolic heart failure exacerbation as well as acute COPD exacerbation. Patient was admitted and observed over the course of 4 days. She was successfully diuresed with IV Lasix and denied swelling or shortness of breath above her normal day of discharge. Renal functioning remained stable. Of note, patient stating that she had not been taking her Lasix at home for several months. Echocardiogram revealing ejection fraction of 70%, mild diastolic dysfunction and moderate pulmonary hypertension. In comparison of her echocardiogram from last year, diastolic dysfunction appears slightly improved, now mild, was moderate. Ejection fraction equivocal. Throughout this admission, patient was upset about her fluid restricted diet and she was continually educated on fluid restriction and sodium restricted diets. She was discharged home in stable condition and back to her baseline with close outpatient follow-up recommended. ITS Impressions Chest X-Ray 08/17/16 17:52 IMPRESSION: 1. Limited exam. 2. Mildly enlarged cardiac silhouette with prominence of the pulmonary vasculature mild patchy bilateral opacification possibly representing pulmonary edema. 3. A small left pleural effusion is difficult to exclude. D/ / Tavo Briscoe MD / Tavo Briscoe MD Interpreting Provider: Tavo Briscoe MD Chest CT 08/19/16 09:00 IMPRESSION: 1. Bronchial wall thickening in the left lower lobe associated with a consolidation suspicious for bronchitis. 2. Stable mild cardiomegaly. 3. Coronary artery disease. 4. Emphysema. 5. Old left anterior healed rib fractures and subacute right lateral eighth rib fracture. D/ / 08/19/2016 09:41:25 Owen Noland MD / trent Interpreting Provider: Owen Noland MD Echocardiogram impressions: LVEF 70%. Normal LV chamber size and function. Mild concentric left ventricular hypertrophy. Mildly dilated left ventricle. Mild left ventricular diastolic dysfunction. Normal rectal ventricular structure and function. Moderately dilated left atrium. Moderate pulmonary hypertension. No significant valvular dysfunction. Echocardiogram impressions from 09/18/15: Moderately dilated left ventricle. Normal LV systolic function, LVEF 65%. Mild concentric left ventricular hypertrophy. Moderate left ventricular diastolic dysfunction. Normal right ventricular structure and function. Moderately dilated left atrium. No significant valvular dysfunction. Unable to estimate RVSP due to lack of TR jet. - Time Spent with Patient Total time spent providing and/or coordinating discharge services: - Constitutional Vitals: Temp Pulse Resp BP Pulse Ox 98.0 F 89 20 135/79 92 L 08/20/16 15:40 08/20/16 15:40 08/20/16 15:40 08/20/16 15:40 08/20/16 15:40 General appearance: Present: A&O X 3, pleasant, no acute distress, obese, answers questions appropriately - Head Head exam: Present: atraumatic, normocephalic - Eye Eye exam: Present: PERRL, conjuntiva pink, sclera anicteric Pupils: Present: PERRL - Neck Neck exam general surgery: Present: supple, trachea midline. Absent: lymphadenopathy - Respiratory Respiratory exam: Present: decreased breath sounds, prolonged expiratory phase. Absent: accessory muscle use, rales, respiratory distress, rhonchi, wheezes - Cardiovascular Cardiovascular exam: Present: RRR, +S1, +S2. Absent: diastolic murmur, gallop, rubs, systolic murmur - GI/Abdominal GI/Abdominal exam: Present: normal bowel sounds, soft, no peritoneal signs. Absent: distended, tenderness - Extremities Exam Extremities exam: Present: warm, radial pulses palpable and symetrical. Absent : calf tenderness, cyanotic, pedal edema - Neurological Exam Neurological exam: Present: alert, CN II-XII intact, oriented X3, no focal deficits, strengths equal and symetr throughout. Absent: pronater drift, facial droop, speech deficit - Skin Skin exam: Present: dry, intact, normal color, warm
[2016-08-20] MEDS ORDERED: Bisacodyl 10 MG RECTAL SUPPOSITORY RC SCH (16:15)
[2016-08-21] MEDS ORDERED: levoFLOXacin 750 MG TABLET PO SCH (09:00)
== END 2016-08-20 19:14 | disposition home or self-care (01) | DRG 194 ==
LOC: 3BNU 17:27 → EMEROO 17:27 → 3BNU 19:56
PROVIDERS: ADMIT Internal Medicine; ATTEND Nurse Practitioner Family

== ENCOUNTER 2016-09-12 21:31 | Inpatient (IN) ==
--- NOTE | 2016-09-12 21:47 | Emergency Department Note ---
Disposition Clinical Impression: Pneumonia Qualifiers: Pneumonia type: due to unspecified organism Laterality: left Lung location: lower lobe of lung Qualified Code(s): J18.1 - Lobar pneumonia, unspecified organism Disposition: Admitted As Inpatient Referrals: Unassigned,Provider [Non-Partnered Physician] - Forms: ED Satisfaction Letter SOB HPI - General Chief Complaint: ED Shortness of Breath/Dyspnea Stated Complaint: DESIRE Time Seen by Provider: 09/12/16 21:35 Source: patient, EMS Limitations: no limitations Nursing Notes Reviewed: Yes Vital Signs Reviewed: Yes - History of Present Illness Patient comes in complaint of difficulty in breathing this been going on for a couple days. Patient is a history of COPD she is a smoker. Patient denies fevers and chills. She complains of cough is nonproductive. Patient denies numbness tingling associated with this. Denies any vision changes or chest pain. Patient is been using her treatments at home with no improvement of her symptoms. - Related Data Home Medications Medication Instructions Recorded Confirmed Albuterol Sulfate [Proair Hfa] 2 puff IH Q4H PRN 09/16/15 08/28/16 Budesonide/Formoterol 160/4.5 2 puff IH BIDR 09/16/15 08/28/16 [Symbicort 160/4.5] Lansoprazole [Prevacid] 30 mg PO BID 09/16/15 08/28/16 Oxycodone HCl/Acetaminophen 1 tab PO Q4H PRN 09/16/15 08/28/16 [Percocet 10-325 mg Tablet] Pregabalin [Lyrica] 150 mg PO TID 09/16/15 08/28/16 Roflumilast [Daliresp] 500 mcg PO QAM 09/16/15 08/28/16 Tiotropium [Spiriva] 18 mcg IH DAILY 09/16/15 08/28/16 Albuterol Neb [Proventil Neb] 2.5 mg IH Q4H PRN 08/17/16 08/28/16 ClonazePAM [Klonopin] 1 mg PO DAILY 08/17/16 08/28/16 Docusate [Colace] 100 mg PO BID PRN 08/17/16 08/28/16 Loratadine [Claritin] 10 mg PO DAILY 08/17/16 08/28/16 Ropinirole [Requip] 3 mg PO HS 08/17/16 08/28/16 Simvastatin [Zocor] 40 mg PO HS 08/17/16 08/28/16 PredniSONE 60 mg PO DAILY 08/28/16 08/28/16 Previous Rx's Medication Instructions Recorded Benzonatate [Tessalon] 200 mg PO TID PRN #30 capsule 08/20/16 Furosemide [Lasix] 20 mg PO BID #60 tablet 08/20/16 GuaiFENesin ER [Mucinex] 1,200 mg PO BID PRN #40 tbbp.12hr 08/20/16 Lisinopril [Zestril] 5 mg PO DAILY #30 tablet 08/20/16 Oxygen 3 l IN CONT #1 each 08/20/16 Potassium Chloride 20 meq PO DAILY #30 tab.er.prt 08/20/16 Levofloxacin [Levaquin] 500 mg PO DAILY #10 tablet 08/28/16 Allergies Allergy/AdvReac Type Severity Reaction Status Date / Time No Known Allergies Allergy Verified 08/28/16 17:47 All systems ED: reviewed and negative except as stated. Past Medical History - Past Medical History Source: patient Medical history: Reports: asthma, COPD Surgical history: Reports: no surgical history Psychiatric history: Reports: anxiety, depression PIPE MAKER history: Reports: no PIPE MAKER history - Social History Smoking Status: Current every day smoker Smokeless Tobacco Status: No Alcohol use: Reports: occasionally Drug use: Reports: none Physical Exam - General Limitations: no limitations General appearance: alert - Head Head exam: atraumatic, normocephalic, normal inspection - Eye Eye exam: Present: normal appearance, PERRL, EOMI - ENT ENT exam: normal exam, normal oropharynx, mucous membranes moist - Neck Neck exam: Present: normal inspection, full ROM, trachea midline - Chest Chest inspection: Present: normal inspection, symmetric chest wall rise - Respiratory Respiratory exam: Present: wheezes (left lung field). Absent: normal lung sounds bilaterally, respiratory distress, prolonged expiratory phase - Cardiovascular Cardiovascular exam: Present: regular rate, normal rhythm, normal heart sounds - Abdominal Exam Abdominal exam: Present: soft, Non-Tender. Absent: tenderness, distention, guarding, rebound, rigidity - Extremities Exam Extremities exam: Present: normal inspection, full ROM. Absent: tenderness, pedal edema - Back Exam Back exam: Present: normal inspection, full ROM. Absent: tenderness - Neurological Exam Neurological exam: Present: alert, oriented X3 - Psychiatric Psychiatric exam: Present: normal affect, normal mood - Skin Skin exam: Present: warm, dry, intact, normal color Course Vital Signs Temperature 98.2 F 09/12/16 21:33 Pulse Rate 98 09/12/16 21:33 Respiratory Rate 22 09/12/16 21:33 Blood Pressure 88/57 09/12/16 21:33 O2 Sat by Pulse Oximetry 91 L 09/12/16 21:33 Temperature 98.2 F 09/12/16 21:33 Pulse Rate 101 09/13/16 01:22 Respiratory Rate 18 09/13/16 01:14 Blood Pressure 101/54 09/13/16 01:22 O2 Sat by Pulse Oximetry 91 L 09/13/16 01:14 Oxygen Delivery Oxygen Delivery Nasal Cannula Shortness of Breath/Dyspnea - Differential Diagnosis Likely: acute exacerbation of chronic obstructive airways disease, congestive heart failure, pneumonia, asthma with exacerbation, pulmonary embolism - Lab Data Result diagrams: 09/12/16 22:00 09/12/16 22:00 Lab Results 09/12/16 09/12/16 09/12/16 Range/Units 22:00 22:00 22:00 WBC 15.7 H (4.3-11.1) K/mcL RBC 3.74 L (3.82-4.97) M/mcL Hgb 11.5 (11.5-15.4) g/dL Hct 35.6 (35.3-44.9) % MCV 95.2 (83.0-100.0) fL MCH 30.7 (28.0-33.3) pg MCHC 32.3 (31.6-35.5) g/dL RDW 15.1 H (11.5-14.5) % Plt Count 208 (140-400) K/mcL MPV 12.0 (9.4-12.4) fL Immature Gran % 0.5 (0-4) % Seg Neutrophils % 84.9 % Lymphocytes % 8.0 % Monocytes % 6.4 % Eosinophils % 0.1 % Basophils % 0.1 % Neutrophils # 13.3 H (1.6-8.9) K/mcL Lymphocytes # 1.3 (0.6-4.6) K/mcL Monocytes # 1.0 (0.0-1.3) K/mcL Eosinophils # 0.0 (0.0-0.6) K/mcL Basophils # 0.0 (0.0-0.2) K/mcL PT 13.3 H (9.4-12.1) Seconds INR 1.2 APTT 28.1 (26.0-36.0) Seconds Sodium 137 (136-145) mEq/L Potassium 4.0 (3.5-4.5) mEq/L Chloride 98 (98-109) mEq/L Carbon Dioxide 28 (19-29) mEq/L BUN 36 H (7-20) mg/dL Creatinine 1.22 H (0.57-1.11) mg/dL Est GFR ( Amer) 54 L (> 60) Est GFR (Non-Af Amer) 45 L (> 60) BUN/Creatinine Ratio 30 H (6-26) Glucose 105 H (70-99) mg/dL Calculated Osmolality 293 (280-300) Lactic Acid (0.5-2.2) mmol/L Calcium 9.1 (8.6-10.8) mg/dL Total Bilirubin 0.3 (0.2-1.2) mg/dL AST 10 (5-34) Units/L ALT 12 (0-55) Units/L Alkaline Phosphatase 58 (38-126) Units/L Troponin I (0-0.03) ng/mL B-Natriuretic Peptide (0-100) pg/mL Serum Total Protein 6.7 (6.0-8.3) g/dL Albumin 3.1 L (3.5-5.0) g/dL Globulin 3.6 H (2.4-3.5) g/dL Albumin/Globulin Ratio 0.9 L (1.1-2.2) 09/12/16 09/12/16 09/12/16 Range/Units 22:00 22:00 22:19 WBC (4.3-11.1) K/mcL RBC (3.82-4.97) M/mcL Hgb (11.5-15.4) g/dL Hct (35.3-44.9) % MCV (83.0-100.0) fL MCH (28.0-33.3) pg MCHC (31.6-35.5) g/dL RDW (11.5-14.5) % Plt Count (140-400) K/mcL MPV (9.4-12.4) fL Immature Gran % (0-4) % Seg Neutrophils % % Lymphocytes % % Monocytes % % Eosinophils % % Basophils % % Neutrophils # (1.6-8.9) K/mcL Lymphocytes # (0.6-4.6) K/mcL Monocytes # (0.0-1.3) K/mcL Eosinophils # (0.0-0.6) K/mcL Basophils # (0.0-0.2) K/mcL PT (9.4-12.1) Seconds INR APTT (26.0-36.0) Seconds Sodium (136-145) mEq/L Potassium (3.5-4.5) mEq/L Chloride (98-109) mEq/L Carbon Dioxide (19-29) mEq/L BUN (7-20) mg/dL Creatinine (0.57-1.11) mg/dL Est GFR ( Amer) (> 60) Est GFR (Non-Af Amer) (> 60) BUN/Creatinine Ratio (6-26) Glucose (70-99) mg/dL Calculated Osmolality (280-300) Lactic Acid 1.2 (0.5-2.2) mmol/L Calcium (8.6-10.8) mg/dL Total Bilirubin (0.2-1.2) mg/dL AST (5-34) Units/L ALT (0-55) Units/L Alkaline Phosphatase (38-126) Units/L Troponin I 0.02 (0-0.03) ng/mL B-Natriuretic Peptide 149 H (0-100) pg/mL Serum Total Protein (6.0-8.3) g/dL Albumin (3.5-5.0) g/dL Globulin (2.4-3.5) g/dL Albumin/Globulin Ratio (1.1-2.2) - Radiology Data Radiology results reviewed: Yes I reviewed the patient's radiology results. Chest X-Ray 09/12/16 21:36 IMPRESSION: Limited study with suspected pulmonary edema and left lower lobe atelectasis versus pneumonia. PA and lateral radiographs performed in the Radiology Department may provide additional diagnostic information. D/ / Deonte Covarrubias MD / Deonte Covarrubias MD Interpreting Provider: Deonte Covarrubias MD - EKG Data EKG attestation: Yes I reviewed and interpreted this EKG. EKG shows normal: Reports: sinus rhythm Rate: Reports: normal Rhythm: Reports: NSR Critical Care Time Total Critical Care Time: 60 Attestation: Critical care performed: Time is exclusive of separately billable procedures. Time includes: direct patient care, patient reassessment, coordination of patient care, interpretation of data (laboratory data, radiology data, and respiratory data), review of patient's medical records, medical consultation and documentation of patient care. Procedures included in critical care time: Procedures excluded from critical care time:
[2016-09-12 22:29] LABS: Basophils % 0.1 %; Eosinophils % 0.1 %; Hematocrit 35.6 % (35.3-44.9); Hemoglobin 11.5 g/dL (11.5-15.4); Immature Granulocytes % 0.5 % (0-4); Lymphocytes # 1.3 K/mcL (0.6-4.6); Mean Corpuscular HGB Conc 32.3 g/dL (31.6-35.5); Mean Corpuscular Hemoglobin 30.7 pg (28.0-33.3); Mean Corpuscular Volume 95.2 fL (83.0-100.0); Monocytes % 6.4 %; Neutrophils # 13.3 K/mcL (1.6-8.9); Platelet Count 208 K/mcL (140-400); Red Blood Count 3.74 M/mcL (3.82-4.97); Red Cell Distribution Width 15.1 % (11.5-14.5); Segmented Neutrophils % 84.9 %
[2016-09-12 22:37] LABS: INR 1.2; Prothrombin Time 13.3 Seconds (9.4-12.1)
[2016-09-12 22:40] LABS: Activated Partial Thrombo Time 28.1 Seconds (26.0-36.0)
[2016-09-12 22:44] LABS: Albumin 3.1 g/dL (3.5-5.0); Albumin/Globulin Ratio 0.9 (1.1-2.2); Bilirubin,Total 0.3 mg/dL (0.2-1.2); Calcium 9.1 mg/dL (8.6-10.8); Globulin 3.6 g/dL (2.4-3.5); Total Protein 6.7 g/dL (6.0-8.3)
[2016-09-12] MEDS ORDERED: Vancomycin 2,000 MG in D5% in Water 500 ML IVPB ONE (22:53)
[2016-09-12] MEDS ORDERED: Piperacillin/Tazobactam 3.375 GM in D5% in Water (Mini-Bag+) 100 ML IVPB ONE (22:53)
[2016-09-12] MEDS ORDERED: 0.9 % Sodium Chloride 1,000 ML ONE (23:16)
[2016-09-12] MEDS: 0.9 % Sodium Chloride 1,000 ML IV ONE (23:18)
[2016-09-13] MEDS ORDERED: Naloxone 0.4 MG/ML INJ IVP ONE ×2 (01:35→01:36)
[2016-09-13] MEDS ORDERED: Naloxone 0.4 MG/ML INJ ONE ×2 (01:35→01:39)
[2016-09-13 02:10] LABS: ABG Base Excess 5.1 mEq/L (-2.0 to 3.0); ABG Oxygen Saturation 94 % (95-98); ABG PCO2 58 mmHg (35-45); ABG PH 7.35 pH Units (7.32-7.45); ABG PO2 75 mmHg (85-104); ABG TCO2 33.8 mEq/L (20-26)
[2016-09-13 02:13] LABS: Blood Gas FiO2 32 %
[2016-09-13] MEDS ORDERED: Ipratropium/Albuterol Neb 3 ML ONE (02:17)
[2016-09-13] MEDS ORDERED: Ipratropium/Albuterol Neb 3 ML IH ONE (02:20)
[2016-09-13] MEDS ORDERED: *HR* LORazepam 2 MG/ML VIAL IVP PRN ×2 (03:21→19:20)
[2016-09-13] MEDS ORDERED: Naloxone 0.4 MG/ML INJ IVP PRN ×2 (03:39→19:20)
--- NOTE | 2016-09-13 03:48 | Internal Med History&Physical ---
<Laura Tabares - Last Filed: 09/13/16 05:39> Date of Encounter: 09/13/16 Time of Encounter: 04:13 Assessment and Plan (1) Sepsis Current visit: Yes Status: Acute blood cultures IV antibiotics - zosyn and vancomycin AM labs Qualifiers: Sepsis type: sepsis due to unspecified organism Qualified Code(s): A41.9 - Sepsis, unspecified organism (2) Pneumonia Current visit: Yes Status: Acute aspiration Qualifiers: Pneumonia type: due to unspecified organism Laterality: left Lung location: lower lobe of lung Qualified Code(s): J18.1 - Lobar pneumonia, unspecified organism (3) Acute and chronic respiratory failure Current visit: No Status: Acute supplemental O2 duonebs Qualifiers: Respiratory failure complication: unspecified whether with hypoxia or hypercapnia Qualified Code(s): J96.20 - Acute and chronic respiratory failure , unspecified whether with hypoxia or hypercapnia (4) LANCE (acute kidney injury) Current visit: Yes Status: Acute fluid bolus given in ER AM labs (5) Tobacco abuse Current visit: No Status: Chronic nicotine patch Internal Medicine - H&P: HPI Chief complaint: shortness of breath Admitted From: Emergency Dept History of present illness: Ms. Barrera is a 65 year old female with a past medical history of COPD, asthma , HOWARD on CPAP, diabetes, hyperlipidemia, PVD, arthritis, and AAA who presented to the emergency department with a chief complaint of increased difficulty in breathing for a couple days. She states that her daughter brought her to emergency department due to difficulty in arousing her/her being able to move around. The patient was to be admitted to from the emergency department for sepsis, pneumonia, hypotension, and LANCE. On my arrival to the emergency department, the patient was very minimally responsive to sternal rub with pinpoint pupils. The patient was given repeated doses of Narcan and room assignment was changed to ICU. On arrival to ICU, the patient was alert, oriented, and agitated. Past Med Surg Social Fam HX - Past Medical History Medical history: aortic aneurysm, arthritis, asthma, COPD, diabetes, hyperlipidemia, other (HOWARD on CPAP, PVD) Psychiatric history: anxiety, depression - Past Surgical History Surgical History: other (carpal tunnel, cervical disc) - Social History Smoking Status: Current every day smoker Smokeless Tobacco Status: No Alcohol use: occasionally Drug use: none - Family History Mother Adopted: No Living Status: Hx Family Cardiac Disorders: No Hx Family Respiratory Disorders: No Hx Family Cancer: No Internal Medicine - H&P: Meds Albuterol Sulfate [Proair Hfa] 2 puff IH Q4H PRN 09/16/15 [History] Lansoprazole [Prevacid] 30 mg PO DAILY 09/16/15 [History] Oxycodone HCl/Acetaminophen [Percocet 10-325 mg Tablet] 1 tab PO Q4H PRN [History] Pregabalin [Lyrica] 150 mg PO TID 09/16/15 [History] Roflumilast [Daliresp] 500 mcg PO QAM 09/16/15 [History] Tiotropium [Spiriva] 18 mcg IH DAILY 09/16/15 [History] Albuterol Neb [Proventil Neb] 2.5 mg IH Q4H PRN 08/17/16 [History] ClonazePAM [Klonopin] 1 mg PO BID 08/17/16 [History] Ropinirole [Requip] 3 mg PO BID 08/17/16 [History] Simvastatin [Zocor] 20 mg PO HS 08/17/16 [History] Oxygen 3 l IN CONT #1 each 08/20/16 [Rx] Amlodipine [Norvasc] 5 mg PO DAILY 09/13/16 [History] Docusate [Colace] 100 mg PO BID 09/13/16 [History] Hydrochlorothiazide 25 mg PO DAILY 09/13/16 [History] Ipratropium/Albuterol Sulfate [Combivent Respimat Inhal [place]] 1 puff IH QID PRN 09/13/16 [History] Loratadine [Allergy Relief] 10 mg PO DAILY 09/13/16 [History] Potassium Chloride [Klor-Con 10] 10 meq PO DAILY 09/13/16 [History] PredniSONE [Dario] 5 mg PO DAILY 09/13/16 [History] Allergies No Known Allergies Allergy (Verified 08/28/16 17:47) All Systems PM: A 10-system review of systems was performed and is negative for pertinent findings except as documented above in the HPI. - Constitutional Constitutional: lethargy, no chills, no fever(s), no night sweats - EENT Eyes: no change in vision, no discharge, no pain, no photophobia Ears: no ear discharge, no ear pain, no tinnitus Nose, mouth and throat: no dysphagia, no nasal discharge, no neck pain, no sore throat - Cardiovascular Cardiovascular ROS IM: no chest pain, no diaphoresis, no dyspnea, no lightheadedness, no palpitations, no syncope - Respiratory Respiratory: cough, dyspnea, excessive phlegm production, no wheezing - Gastrointestinal Gastrointestinal: no abdominal pain, no diarrhea, no hematemesis, no hematochezia, no melena, no nausea, no vomiting - Genitourinary Genitourinary: no change in urinary stream, no dysuria, no flank pain, no hematuria - Musculoskeletal Musculoskeletal ROS IM: no numbness, no tingling - Integumentary Integumentary IM: no rash, no unusual bruising - Neurological Neurological ROS: no confusion, no convulsions, no focal weakness, no numbness, no tingling, no tremor(s) - Hematologic/Lymphatic Hematologic/Lymphatic: no easy bruising - Constitutional Vitals: Temp Pulse Resp BP Pulse Ox 98.3 F 111 18 99/43 87 L 09/13/16 03:00 09/13/16 03:00 09/13/16 03:00 09/13/16 03:00 09/13/16 03:00 General appearance: Present: A&O X 3 - Head Head exam: Present: atraumatic, normocephalic - Eye Eye exam: Present: PERRL, conjuntiva pink, sclera anicteric Pupils: Present: PERRL - Neck Neck exam general surgery: Present: supple, trachea midline. Absent: lymphadenopathy - Respiratory Respiratory exam: Present: rhonchi (throughout). Absent: accessory muscle use, rales, wheezes - Cardiovascular Cardiovascular exam: Present: RRR, +S1, +S2. Absent: diastolic murmur, gallop, rubs, systolic murmur - GI/Abdominal GI/Abdominal exam: Present: normal bowel sounds, soft, no peritoneal signs. Absent: distended, tenderness - Extremities Exam Extremities exam: Present: warm, radial pulses palpable and symetrical. Absent : calf tenderness, cyanotic, pedal edema - Neurological Exam Neurological exam: Present: CN II-XII intact, oriented X3, no focal deficits. Absent: pronater drift, facial droop, speech deficit - Skin Skin exam: Present: dry, intact Internal Med - H&P Results - Labs CBC & Chem 7: 09/13/16 04:28 09/13/16 04:28 - ABG Interpretation ABG results: 09/13/16 02:03 ABG pH 7.35 ABG pCO2 58 H ABG pO2 75 L ABG HCO3 32.0 H ABG Total CO2 33.8 H ABG O2 Saturation 94 L ABG Base Excess 5.1 H <Alex Nixon - Last Filed: 09/14/16 06:27> Date of Encounter: 09/14/16 Internal Medicine - H&P: HPI History of present illness: Ms. Barrera is a 65 year old female All Systems PM: A 10-system review of systems was performed and is negative for pertinent findings except as documented above in the HPI. - Constitutional Vitals: Temp Pulse Resp BP Pulse Ox 98.1 F 93 18 121/55 90 L 09/14/16 04:39 09/14/16 04:39 09/14/16 04:39 09/14/16 04:39 09/14/16 04:39 Internal Med - H&P Results - Labs CBC & Chem 7: 09/13/16 04:28 09/13/16 04:28 - ABG Interpretation ABG results: 09/14/16 Unknown ABG pH 7.36 ABG pCO2 65 H ABG pO2 63 L ABG HCO3 36.7 H ABG Total CO2 38.7 H ABG O2 Saturation 91 L ABG Base Excess 9.6 H - Impressions ITS Impressions Chest X-Ray 09/13/16 03:48 IMPRESSION: Or stable acute congestive heart failure with mild asymmetric lung base consolidation and left effusion. D/ / Wilfredo Mane MD / Wilfredo Mane MD Interpreting Provider: Wilfredo Mane MD - Attending Attestation I examined this patient and my medical decision-making was reviewed with the Resident Physician, Dr. Tabares. I agree with the documented findings, disposition and treatment plan as described except to the extent set forth below. The patient was brought to the hospital for shortness of breath. When I examine the patient and she was unresponsive to sternal rub withdrawing to pain but not opening her eyes. She had pinpoint pupils. I have treated the patient with 0.8 mg of Narcan for opiate toxicity with a small a very transient response. I repeated it this dose was and obtained a cough response at which point the patient produced a sizable amount of thick yellow sputum with coughing. She still remained minimally responsive and therefore I treated a patient again with 2 mg of Narcan. Soon afterwards she arose and was communicative and was able to answer questions appropriately however she was still confused. At this time the patient was transferred to the intensive care unit for close monitoring. I will to stop treatment will with high-dose high potency opiates. The patient was taking Percocet 10 mg at home every 4 hours. We will treat the patient for acute metabolic encephalopathy secondary to opiate toxicity with Narcan as needed. For sepsis secondary to aspiration pneumonia in the context of opiate overdose without self-harm intent: We will treat the patient with IV fluids and broad- spectrum IV antibiotics. Monitor temperature curve. Oxygen by nasal cannula. Inhaled bronchodilators. The patient is highly unstable and there is high probability of emergent and significant clinical decompensation with potential impairment of organ function including cardiovascular system and respiratory system. I have performed 40 minutes of critical care time which involved decision making of high complexity to assess, manipulate, and support vital organ system, in order to prevent further life threatening deterioration of the patient's condition. The time involved in the performance of any procedures and resident teaching was not counted toward critical care time and will be billed separately. Critical care time was spent evaluating the patient, reviewing EKGs, telemetry tracing, imaging studies and laboratory data, discussing the case with the emergency department physicians, and consultants, ordering medications and reevaluating for clinical response and making adjustments to ordered medications.
[2016-09-13] MEDS ORDERED: Vancomycin 1,750 MG in D5% in Water 250 ML IVPB SCH (04:00)
[2016-09-13] MEDS: Ipratropium/Albuterol Neb 3 ML IH SCH ×6 (04:12→23:05)
[2016-09-13] MEDS ORDERED: *HR* HYDROcodone/Acet 5/325 mg TABLET PO PRN ×2 (04:30→19:20)
[2016-09-13] MEDS ORDERED: Acetaminophen 325 MG TABLET PO PRN ×2 (04:30→19:20)
[2016-09-13] MEDS ORDERED: Ondansetron ODT 4 MG TAB.RAPDIS SL PRN ×2 (04:30→19:20)
[2016-09-13] MEDS ORDERED: NON-FORMULARY MEDICATION 1 EACH EACH (Ipratropium/Albuterol Sulfate [Combivent Respimat In IH PRN (04:36)
[2016-09-13 04:38] LABS: Basophils % 0.1 %; Eosinophils % 0.3 %; Hematocrit 33.8 % (35.3-44.9); Hemoglobin 10.8 g/dL (11.5-15.4); Immature Granulocytes % 0.7 % (0-4); Lymphocytes # 1.3 K/mcL (0.6-4.6); Lymphocytes % 8.2 %; Mean Corpuscular Hemoglobin 30.7 pg (28.0-33.3); Mean Platelet Volume 11.5 fL (9.4-12.4); Monocytes # 1.5 K/mcL (0.0-1.3); Monocytes % 9.8 %; Neutrophils # 12.7 K/mcL (1.6-8.9); Platelet Count 195 K/mcL (140-400); Red Blood Count 3.52 M/mcL (3.82-4.97); Red Cell Distribution Width 15.3 % (11.5-14.5); Segmented Neutrophils % 80.9 %
[2016-09-13 04:56] LABS: BUN/Creatinine Ratio 32 (6-26); Blood Urea Nitrogen 34 mg/dL (7-20); Calcium 8.7 mg/dL (8.6-10.8); Carbon Dioxide 28 mEq/L (19-29); Chloride 99 mEq/L (98-109); Glucose 86 mg/dL (70-99); Magnesium 1.5 mg/dL (1.6-2.6); Osmolality,Calculated 291 (280-300); Potassium 3.7 mEq/L (3.5-4.5); Sodium 137 mEq/L (136-145); eGFR For African Americans > 60 (> 60); eGFR For Non-African Americans 52 (> 60)
[2016-09-13 05:47] LABS: Bilirubin,Urine Negative (Negative); Blood,Urine Negative (Negative); Clarity,Urine Clear (Clear); Glucose,Urine (UA) Normal (Normal); Ketones,Urine Negative (Negative); Leukocyte Esterase,Urine Negative (Negative); Nitrite,Urine Negative (Negative); Protein,Urine Negative (Neg-Trace); Specific Gravity,Urine 1.014 (1.010-1.025); Urobilinogen,Urine Normal (Normal)
[2016-09-13 05:48] LABS: Color,Urine Yellow (Yellow)
[2016-09-13] MEDS ORDERED: *HR* Enoxaparin 40 MG/0.4 ML SYRINGE SQ SCH (06:00)
[2016-09-13 06:38] LABS: Amphetamine Screen,Urine Negative ng/mL (Cutoff=1000); Barbiturate Screen,Urine Negative ng/mL (Cutoff=200); Benzodiazepines Screen,Urine Negative ng/mL (Cutoff=200); Cannabinoid Screen,Urine Negative ng/mL (Cutoff = 50); Cocaine Screen,Urine Negative ng/mL (Cutoff= 300); Opiate Screen,Urine Positive ng/mL (Cutoff=300); Phencyclidine Screen,Urine Negative ng/mL (Cutoff=25)
[2016-09-13] MEDS: MethylPREDNISolone 40 MG/ML VIAL IVP SCH ×2 (08:20→16:01)
[2016-09-13] MEDS: Pregabalin 75 MG CAPSULE PO SCH ×3 (08:20→22:19)
[2016-09-13] MEDS: Piperacillin/Tazobactam 3.375 GM in D5% in Water (Mini-Bag+) 100 ML IVPB SCH ×2 (08:22→16:01)
[2016-09-13] MEDS ORDERED: Magnesium Sulfate 2 GM in D5% in Water 100 ML IV ONE (08:48)
[2016-09-13] MEDS ORDERED: clonazePAM 1 MG TABLET PO SCH (09:00)
[2016-09-13] MEDS ORDERED: amLODIPine 5 MG TABLET PO SCH (09:00)
[2016-09-13] MEDS ORDERED: Nicotine 7 MG PATCH.TD24 TD SCH (09:00)
[2016-09-13] MEDS ORDERED: (Roflumilast [Daliresp] 500 MCG) PO SCH (09:00)
[2016-09-13] MEDS ORDERED: Budesonide/Formoterol 160/4.5 MDI IH SCH (10:00)
--- NOTE | 2016-09-13 16:29 | Event Note ---
<Silvio Tamayo - Last Filed: 09/13/16 16:29> Date of Encounter: 09/13/16 Time of Encounter: 09:00 65-year-old female history of COPD, asthma, HOWARD on CPAP presented with shortness of breath. In the ER she was difficult to arouse. Patient was given repeated doses of Narcan and finally became alert and oriented 3. She was changed to ICU. This morning patient was alert and oriented 3. She denied chest pain, shortness of breath, abdominal pain, nausea, vomiting. Gen: alert oriented x3, anxious Heart: RRR no mumur Lungs: decreased breath sounds, wheezing throughout Abdomen: distended, umbilical hernia, non tender Extremities: mild pitting edema, peripheral pulses intact Patient will be transferred to [address] [place] [address]. We will continue her on drink and Zosyn for possible healthcare acquired pneumonia. Furthermore she will be continued on DuoNeb, Symbicort, Solu-Medrol for COPD exacerbation. Patient will be put on CPAP at night for her sleep apnea. She will continue her home dose of amlodipine for hypertension. We will repeat CBC and BMP in the morning. Patient can continue her Requip for restless leg syndrome. <Devon Connors - Last Filed: 09/13/16 18:55> Date of Encounter: 09/13/16 Ms. Barrera was admitted early this morning due to acute encephalopathy and presumed somnolence due to narcotics. She is currently alert and conversant. She is unhappy her pills were taken. Exam Alert. Scant wheeze Plan Transfer out of ICU Continue current management.
[2016-09-13] MEDS: Budesonide/Formoterol 160/4.5 MDI IH SCH (20:33)
[2016-09-13] MEDS ORDERED: Vancomycin 2,000 MG in D5% in Water 500 ML IVPB SCH ×2 (23:00)
[2016-09-14] MEDS: MethylPREDNISolone 40 MG/ML VIAL IVP SCH ×3 (00:56→16:31)
[2016-09-14] MEDS: Piperacillin/Tazobactam 3.375 GM in D5% in Water (Mini-Bag+) 100 ML IVPB SCH ×3 (00:56→16:31)
[2016-09-14 01:54] LABS: ABG Base Excess 9.6 mEq/L (-2.0 to 3.0); ABG HCO3 36.7 mEQ/L (21-27); ABG Oxygen Saturation 91 % (95-98); ABG PCO2 65 mmHg (35-45); ABG PH 7.36 pH Units (7.32-7.45); ABG PO2 63 mmHg (85-104); ABG TCO2 38.7 mEq/L (20-26); Blood Gas Liter Flow 6 L/MIN
[2016-09-14] MEDS: Ipratropium/Albuterol Neb 3 ML IH SCH ×6 (03:52→23:17)
[2016-09-14] MEDS: *HR* Enoxaparin 40 MG/0.4 ML SYRINGE SQ SCH (06:46)
[2016-09-14] MEDS: Budesonide/Formoterol 160/4.5 MDI IH SCH ×2 (07:29→20:46)
[2016-09-14 07:33] LABS: Basophils % 0.1 %; Hematocrit 35.5 % (35.3-44.9); Hemoglobin 11.1 g/dL (11.5-15.4); Immature Granulocytes % 0.7 % (0-4); Lymphocytes # 0.5 K/mcL (0.6-4.6); Lymphocytes % 4.8 %; Mean Corpuscular HGB Conc 31.3 g/dL (31.6-35.5); Mean Corpuscular Hemoglobin 30.2 pg (28.0-33.3); Mean Corpuscular Volume 96.5 fL (83.0-100.0); Mean Platelet Volume 11.2 fL (9.4-12.4); Monocytes # 0.4 K/mcL (0.0-1.3); Monocytes % 3.8 %; Neutrophils # 9.2 K/mcL (1.6-8.9); Platelet Count 192 K/mcL (140-400); Red Blood Count 3.68 M/mcL (3.82-4.97); Red Cell Distribution Width 14.7 % (11.5-14.5); Segmented Neutrophils % 90.6 %
[2016-09-14 07:40] LABS: BUN/Creatinine Ratio 23 (6-26); Calcium 9.1 mg/dL (8.6-10.8); Carbon Dioxide 34 mEq/L (19-29); Chloride 101 mEq/L (98-109); Glucose 164 mg/dL (70-99); Osmolality,Calculated 295 (280-300); Potassium 4.5 mEq/L (3.5-4.5); Sodium 140 mEq/L (136-145); eGFR For African Americans > 60 (> 60); eGFR For Non-African Americans > 60 (> 60)
[2016-09-14 07:43] LABS: Blood Urea Nitrogen 16 mg/dL (7-20)
[2016-09-14] MEDS: Nicotine 7 MG PATCH.TD24 TD SCH (08:36)
[2016-09-14] MEDS: Pregabalin 75 MG CAPSULE PO SCH ×3 (08:37→21:57)
[2016-09-14] MEDS: amLODIPine 5 MG TABLET PO SCH (08:38)
[2016-09-14] MEDS: clonazePAM 1 MG TABLET PO SCH (08:38)
[2016-09-14] MEDS: DALIRESP PO SCH (08:39)
--- NOTE | 2016-09-14 13:49 | Internal Med Progress Note ---
<Silvio Tamayo - Last Filed: 09/14/16 16:05> Date of Encounter: 09/14/16 Time of Encounter: 13:45 - Assessment and plan (1) Pneumonia Current Visit: Yes Status: Acute Assessment and plan: As patient came in minimally responsive it was noted that she could have aspirated. She was started on vanc and zosyn. Her WBC on admission were 15 and now are WNL. Her lung exam has not improved from yesterday. She has diffuse rales and rhonci, decreased breath sounds .ALso she was on 6L O2 which at home she is on 3L. XRay shows left lung base opacity. We will continue abx. Prelim blood cultures are negative. Sputum culture negative. Qualifiers: Pneumonia type: due to unspecified organism Laterality: left Lung location: lower lobe of lung Qualified Code(s): J18.1 - Lobar pneumonia, unspecified organism (2) COPD exacerbation Current Visit: Yes Status: Acute Assessment and plan: Continue duoneb, solumedrol, and antibiotics. Plan as above. (3) Hypertension Current Visit: Yes Status: Chronic Assessment and plan: Controlled. Continue amlodipine. Qualifiers: Hypertension type: essential hypertension Qualified Code(s): I10 - Essential (primary) hypertension (4) Restless leg syndrome, controlled Current Visit: Yes Status: Chronic Assessment and plan: Continue requpid. Controlled. (5) DVT prophylaxis Current Visit: Yes Status: Acute Assessment and plan: Continue lovenox (6) HOWARD (obstructive sleep apnea) Current Visit: No Status: Chronic Assessment and plan: hx of HOWARD. On CPAP at home. Non compliant. Did not use CPAP last night even when ordered. PCO2 is 65 this morning. Her pH is stable. Patient maybe eligible for BIPAP however from her noncompliance unsure is she would use. (7) Opioid intoxication Current Visit: Yes Status: Resolved Assessment and plan: On admission patient was minimally responsive with pinpoint pupils. SHe was administered Narcan 3x and became alert and oriented x3. Patients purse had 65 oxycodone pills and 76 lyrica pills. Her home meidcation include percocet 10- 325. Patient daughter states that she helps patient with medications. Unsure if intoxication was due to overuse but likely. Currently Alert oriented x3. Qualifiers: Complication of substance-induced condition: uncomplicated Qualified Code(s ): F11.120 - Opioid abuse with intoxication, uncomplicated - Subjective Interval history: While patient states she feels better with improved sob, and resolution of drowsiness, she continues to require 6L O2. At home patient is using 3L O2. From my conversation here she is very noncompliant with her home CPAP. According to her daughter she has tried every mask and "nothing works". Patient may qualify for home bipap as her pCO2 is >55. Patient was adamant about going home today, especially if patient's daughter does not stay with her overnight. However, during admission, she was noted to have signs of aspiration and is currently on Vanc and Zosyn. Patient is definitely not ready for discharge. Her respirtory status still needs to be observed. - Constitutional Vitals: Temp Pulse Resp BP Pulse Ox 98.6 F 101 20 134/71 91 L 09/14/16 11:10 09/14/16 11:10 09/14/16 11:13 09/14/16 11:10 09/14/16 11:13 General appearance: Present: A&O X 3, answers questions appropriately - Respiratory Respiratory exam: Present: accessory muscle use, decreased breath sounds, prolonged expiratory phase, rhonchi, wheezes (b/l ) - Cardiovascular Cardiovascular exam: Present: +S1, +S2, tachycardia - GI/Abdominal GI/Abdominal exam: Present: distended, normal bowel sounds, soft. Absent: tenderness - Extremities Exam Extremities exam: Present: warm, radial pulses palpable and symetrical. Absent : calf tenderness, cyanotic, pedal edema - Psychiatric Psychiatric exam: Present: anxious Internal Medicine: Result - Labs CBC & Chem 7: 09/14/16 07:16 09/14/16 07:16 Labs: Short CBC 09/14/16 Range/Units 07:16 WBC 10.1 (4.3-11.1) K/mcL Hgb 11.1 L (11.5-15.4) g/dL Hct 35.5 (35.3-44.9) % Plt Count 192 (140-400) K/mcL Neutrophils # 9.2 H (1.6-8.9) K/mcL BMP 09/14/16 07:16 Sodium 140 Potassium 4.5 Chloride 101 Carbon Dioxide 34 H BUN 16 D Creatinine 0.70 Glucose 164 H Calcium 9.1 - ABG Interpretation ABG results: ABG ABG pH 7.36 pH Units (7.32-7.45) 09/14/16 Unknown ABG pCO2 65 mmHg (35-45) H 09/14/16 Unknown ABG pO2 63 mmHg (85-104) L 09/14/16 Unknown ABG O2 Saturation 91 % (95-98) L 09/14/16 Unknown PT/INR, D-dimer PT 13.3 Seconds (9.4-12.1) H 09/12/16 22:00 Consult Discharge Plan - Plan Referrals: Flor Nassar, [employer] MACHINE OPERATOR [Primary Care Provider] - <Devon Connors - Last Filed: 09/14/16 18:50> Date of Encounter: 09/14/16 - Assessment and plan (1) Acute metabolic encephalopathy Current Visit: Yes Status: Resolved Assessment and plan: Resolved at this time. (2) COPD exacerbation Current Visit: Yes Status: Acute (3) Pneumonia Current Visit: No Status: Suspected Assessment and plan: Presumed aspiration pneumonia on IV abx. Qualifiers: Pneumonia type: aspiration pneumonia Laterality: left Lung location: lower lobe of lung Qualified Code(s): J69.0 - Pneumonitis due to inhalation of food and vomit (4) Hypertension Current Visit: Yes Status: Chronic Qualifiers: Hypertension type: essential hypertension Qualified Code(s): I10 - Essential (primary) hypertension (5) Acute and chronic respiratory failure Current Visit: No Status: Acute Qualifiers: Respiratory failure complication: hypoxia Qualified Code(s): J96.21 - Acute and chronic respiratory failure with hypoxia (6) Restless leg syndrome, controlled Current Visit: Yes Status: Chronic (7) Tobacco abuse Current Visit: No Status: Chronic - Constitutional Vitals: Temp Pulse Resp BP Pulse Ox 97.9 F 94 18 119/67 94 L 09/14/16 15:20 09/14/16 15:20 09/14/16 15:39 09/14/16 15:20 09/14/16 15:39 Internal Medicine: Result - Labs CBC & Chem 7: 09/14/16 07:16 09/14/16 07:16 Labs: Short CBC 09/14/16 Range/Units 07:16 WBC 10.1 (4.3-11.1) K/mcL Hgb 11.1 L (11.5-15.4) g/dL Hct 35.5 (35.3-44.9) % Plt Count 192 (140-400) K/mcL Neutrophils # 9.2 H (1.6-8.9) K/mcL BMP 09/14/16 07:16 Sodium 140 Potassium 4.5 Chloride 101 Carbon Dioxide 34 H BUN 16 D Creatinine 0.70 Glucose 164 H Calcium 9.1 - ABG Interpretation ABG results: ABG ABG pH 7.36 pH Units (7.32-7.45) 09/14/16 Unknown ABG pCO2 65 mmHg (35-45) H 09/14/16 Unknown ABG pO2 63 mmHg (85-104) L 09/14/16 Unknown ABG O2 Saturation 91 % (95-98) L 09/14/16 Unknown PT/INR, D-dimer PT 13.3 Seconds (9.4-12.1) H 09/12/16 22:00 - Attending Attestation I examined this patient and my medical decision-making was reviewed with the Resident Physician on 09/14/16. I agree with the documented findings, disposition and treatment plan as described except to the extent set forth below. Ms. Barrera is currently admitted for acute aspiration pneumonia and COPD exacerbation. She remains moderate to high risk due to potential for worsening respiratory symptoms. Ms. Barrera wants to go home. She says she will leave AMA when her daughter gets here. We encouraged her that she needs to stay and get abx and steroids. She won't wear her bipap. She feels she has everything at home that she needs. Exam Alert. Mod resp distress at rest Heart reg Lungs with wheeze and rhonchi bilaterally Abd soft Edema present I/P 1. Acute exac COPD 2. Probable asp pneumonia 3. Encephalopathy resolved. Further diagnoses and plan as above.
[2016-09-14] MEDS ORDERED: rOPINIRole 1 MG TABLET PO STA (13:56)
--- NOTE | 2016-09-14 17:44 | Electrocardiograph Report ---
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
--- NOTE | 2016-09-14 19:34 | Physician Discharge Referral ---
Home Health/Hosp Referral Info Transfer to: Home Health Provider in Charge Post Discharge: PCP - Diagnosis (1) Acute and chronic respiratory failure Priority: Primary Status: Acute (2) Acute metabolic encephalopathy Priority: Primary Status: Resolved (3) COPD exacerbation Priority: Primary Status: Acute (4) Pneumonia Priority: Primary Status: Suspected (5) Hypertension Priority: Secondary Status: Chronic (6) Restless leg syndrome, controlled Priority: Secondary Status: Chronic (7) Tobacco abuse Priority: Secondary Status: Chronic - Respiratory Orders Oxygen / L per min (Maintain saturation greater than 90%) Smoking Cessation: Smoking cessation has been advised. For more information, call the [place] Tobacco Quit Line at 1-606-GURO-NOW. - Diet/Nutrition Diet/Nutrition Orders: No Concentrated Sweets - Activity Activity Orders: Up ad jacklyn - Services Needed Following services are medically necessary services: Nursing, Home Health Aide, Physical Therapy - Transfer Medications Home Medications: Albuterol Sulfate [Proair Hfa] 2 puff IH Q4H PRN 09/16/15 [History] Lansoprazole [Prevacid] 30 mg PO DAILY 09/16/15 [History] Oxycodone HCl/Acetaminophen [Percocet 10-325 mg Tablet] 1 tab PO Q4H PRN [History] Pregabalin [Lyrica] 150 mg PO TID 09/16/15 [History] Roflumilast [Daliresp] 500 mcg PO QAM 09/16/15 [History] Tiotropium [Spiriva] 18 mcg IH DAILY 09/16/15 [History] Albuterol Neb [Proventil Neb] 2.5 mg IH Q4H PRN 08/17/16 [History] ClonazePAM [Klonopin] 1 mg PO BID 08/17/16 [History] Ropinirole [Requip] 3 mg PO BID 08/17/16 [History] Simvastatin [Zocor] 20 mg PO HS 08/17/16 [History] Oxygen 3 l IN CONT #1 each 08/20/16 [Rx] Amlodipine [Norvasc] 5 mg PO DAILY 09/13/16 [History] Docusate [Colace] 100 mg PO BID 09/13/16 [History] Hydrochlorothiazide 25 mg PO DAILY 09/13/16 [History] Ipratropium/Albuterol Sulfate [Combivent Respimat Inhal [place]] 1 puff IH QID PRN 09/13/16 [History] Loratadine [Allergy Relief] 10 mg PO DAILY 09/13/16 [History] Potassium Chloride [Klor-Con 10] 10 meq PO DAILY 09/13/16 [History] PredniSONE [Dario] 5 mg PO DAILY 09/13/16 [History] Allergies/Adverse Reactions: Allergies No Known Allergies Allergy (Verified 08/28/16 17:47) Certification: Further, I certify that my clinical findings support that this patient is homebound (i.e. absences from home require considerable and taxing effort and are for medical reasons or christian services or infrequently or short duration when for other reasons) because: Homebound Reason: Patient requires assistance of a person or device to safely leave home, Leaving home requires considerable and taxing effort due to condition, Severity of cardiac or pulmonary status limits activity tolerance Attestation: My signature below is to certify that this patient is under my care and that I, or nurse practitioner, or a physician's automobile mechanic assistant working with me, has a face-to -face encounter with this patient.
[2016-09-15] MEDS: Piperacillin/Tazobactam 3.375 GM in D5% in Water (Mini-Bag+) 100 ML IVPB SCH ×2 (00:31→09:00)
[2016-09-15] MEDS: MethylPREDNISolone 40 MG/ML VIAL IVP SCH ×3 (00:31→16:54)
[2016-09-15] MEDS: Ipratropium/Albuterol Neb 3 ML IH SCH ×5 (04:06→15:31)
[2016-09-15 05:30] LABS: Basophils % 0.2 %; Hematocrit 36.2 % (35.3-44.9); Hemoglobin 11.2 g/dL (11.5-15.4); Immature Granulocytes % 0.7 % (0-4); Lymphocytes # 0.5 K/mcL (0.6-4.6); Lymphocytes % 3.1 %; Mean Corpuscular HGB Conc 30.9 g/dL (31.6-35.5); Mean Corpuscular Hemoglobin 30.3 pg (28.0-33.3); Mean Corpuscular Volume 97.8 fL (83.0-100.0); Mean Platelet Volume 11.5 fL (9.4-12.4); Monocytes # 0.8 K/mcL (0.0-1.3); Monocytes % 4.8 %; Neutrophils # 15.4 K/mcL (1.6-8.9); Platelet Count 199 K/mcL (140-400); Red Cell Distribution Width 14.9 % (11.5-14.5); Segmented Neutrophils % 91.2 %
[2016-09-15] MEDS: *HR* Enoxaparin 40 MG/0.4 ML SYRINGE SQ SCH (06:02)
[2016-09-15] MEDS: Budesonide/Formoterol 160/4.5 MDI IH SCH (08:01)
[2016-09-15 08:36] LABS: Calcium 8.4 mg/dL (8.6-10.8); Potassium 3.7 mEq/L (3.5-4.5)
[2016-09-15] MEDS: amLODIPine 5 MG TABLET PO SCH (08:58)
[2016-09-15] MEDS: clonazePAM 1 MG TABLET PO SCH (08:58)
[2016-09-15] MEDS: Pregabalin 75 MG CAPSULE PO SCH ×2 (08:59→16:54)
[2016-09-15] MEDS: DALIRESP PO SCH (09:03)
[2016-09-15] MEDS: Nicotine 7 MG PATCH.TD24 TD SCH (09:04)
[2016-09-15 11:26] VITALS: BP 133/80
--- NOTE | 2016-09-15 15:07 | Discharge Summary ---
<Silvio Tamayo - Last Filed: 09/15/16 15:08> Date of Encounter: 09/15/16 Time of Encounter: 14:56 - Discharge Diagnosis (1) Pneumonia Priority: Primary Status: Acute Qualifiers: Pneumonia type: due to unspecified organism Laterality: left Lung location: lower lobe of lung Qualified Code(s): J18.1 - Lobar pneumonia, unspecified organism (2) COPD exacerbation Priority: Secondary Status: Acute (3) Hypertension Priority: Secondary Status: Chronic Qualifiers: Hypertension type: essential hypertension Qualified Code(s): I10 - Essential (primary) hypertension (4) Restless leg syndrome, controlled Priority: Secondary Status: Chronic (5) DVT prophylaxis Priority: Secondary Status: Acute (6) HOWARD (obstructive sleep apnea) Priority: Secondary Status: Chronic (7) Opioid intoxication Priority: Secondary Status: Resolved Qualifiers: Complication of substance-induced condition: uncomplicated Qualified Code(s ): F11.120 - Opioid abuse with intoxication, uncomplicated - Discharge Medications Prescriptions: Levofloxacin [Levaquin] 750 mg PO DAILY #7 tablet PredniSONE 20 mg PO TAPER #24 tablet Home Medications: Albuterol Sulfate [Proair Hfa] 2 puff IH Q4H PRN 09/16/15 [History] Lansoprazole [Prevacid] 30 mg PO DAILY 09/16/15 [History] Oxycodone HCl/Acetaminophen [Percocet 10-325 mg Tablet] 1 tab PO Q4H PRN [History] Pregabalin [Lyrica] 150 mg PO TID 09/16/15 [History] Roflumilast [Daliresp] 500 mcg PO QAM 09/16/15 [History] Tiotropium [Spiriva] 18 mcg IH DAILY 09/16/15 [History] Albuterol Neb [Proventil Neb] 2.5 mg IH Q4H PRN 08/17/16 [History] ClonazePAM [Klonopin] 1 mg PO BID 08/17/16 [History] Ropinirole [Requip] 3 mg PO BID 08/17/16 [History] Simvastatin [Zocor] 20 mg PO HS 08/17/16 [History] Oxygen 3 l IN CONT #1 each 08/20/16 [Rx] Amlodipine [Norvasc] 5 mg PO DAILY 09/13/16 [History] Docusate [Colace] 100 mg PO BID 09/13/16 [History] Hydrochlorothiazide 25 mg PO DAILY 09/13/16 [History] Ipratropium/Albuterol Sulfate [Combivent Respimat Inhal [place]] 1 puff IH QID PRN 09/13/16 [History] Loratadine [Allergy Relief] 10 mg PO DAILY 09/13/16 [History] Potassium Chloride [Klor-Con 10] 10 meq PO DAILY 09/13/16 [History] PredniSONE [Dario] 5 mg PO DAILY 09/13/16 [History] Levofloxacin [Levaquin] 750 mg PO DAILY #7 tablet 09/15/16 [Rx] PredniSONE 20 mg PO TAPER #24 tablet 09/15/16 [Rx] Allergies/Adverse Reactions: Allergies No Known Allergies Allergy (Verified 08/28/16 17:47) Date of admission: 09/13/16 03:39 Primary care physician: Flor Nassar CNP Consults: 09/13/16 08:46 PT [Consult to Physical Therapy] [CONS] Routine Comment: Evaluate, develop and implement POC 09/13/16 08:47 OT [Consult to Occupational Therapy] [CONS] Routine Comment: Evaluate, develop and implement POC 09/14/16 15:21 Consult to [facility] Warm Up [CONS] Routine Reason for SW Consult: Sophia already working on. Discharging clinician: Silvio Tamayo Anticipated date of discharge: 09/15/16 - Patient Status Disposition: Left Against Medical Advice Condition: Serious Functional capacity at discharge: uses cane/walker Overall status at discharge: patient is not back to baseline - Discharge Instructions Follow Up With: Flor Nassar CNP [Primary Care Provider] - - Diet and Activity Activity: ambulate only with your walker, wear oxygen at all times Diet: diabetic diet, low fat, low cholesterol, low salt diet Hospital course: Ms. Barrera is a 65 year old female with history of COPD, asthma, obstructive sleep apnea on CPAP presented with chief complaint of difficulty breathing. She had blood pressure in the systolics upper 70s. Patient's daughter brought her to the emergency department due to difficulty arousing her and her not being able to move. She is noted to be minimally responsive to sternal rub and had pinpoint pupils. A shunt was given repeated doses of Narcan and taken to ICU. On arrival to ICU patient was alert oriented and agitated. Furthermore it was noted that patient may have aspirated when she was minimally responsive. She was started on vancomycin and Zosyn. Patient developed sepsis secondary to pneumonia. With elevated white blood cell count of 15, hypotension and acute kidney injury. Furthermore she was started on DuoNeb, Symbicort, Solu- Medrol for COPD exacerbation. Her ABG showed a PCO2 of 58 with a pH of 7.35. Her hypercapnia is most likely secondary to chronic emphysema. Day after admission patient was [facility] to [facility]. her log exam showed diffuse rhonchi, wheezing and patient was on 6 L oxygen and desaturated with exertion. Chest x- ray showed left basilar consolidation. At this time we continued current treatment as initial blood cultures did not result in any specific organism. At this point patient complained that she would like to go home and would leave AMA if she had to. It was explained to her that she needed IV antibiotics for her pneumonia and to her poor lung function her condition will worsen if she left for home. Patient stayed 1 more night. Next day her lung exam continued to be poor. Patient again stated that she would like to go home. Her white blood cell count increased to 16.9. Patient's creatinine worsened to 1.54. This is most likely due to hypotension noted on admission which is now presenting as acute tubular necrosis. Patient was notified of this however she was adamant about leaving AMA. She understood the risks of leaving including worsening pneumonia, worsening shortness of breath, and possible . She was discharged with prescriptions of Levaquin and prednisone. She was also discharged with home health. - Time Spent with Patient Total time spent providing and/or coordinating discharge services: - Constitutional Vitals: Temp Pulse Resp BP Pulse Ox 98.3 F 88 18 133/80 92 L 09/15/16 07:15 09/15/16 11:00 09/15/16 11:16 09/15/16 11:00 09/15/16 11:16 General appearance: Present: A&O X 3, answers questions appropriately - Head Head exam: Present: atraumatic, normocephalic - Eye Eye exam: Present: PERRL, conjuntiva pink, sclera anicteric - Neck Neck exam general surgery: Present: supple, trachea midline. Absent: lymphadenopathy - Respiratory Respiratory exam: Present: accessory muscle use, decreased breath sounds, prolonged expiratory phase, rhonchi, wheezes. Absent: rales - Cardiovascular Cardiovascular exam: Present: +S1, +S2, tachycardia. Absent: diastolic murmur, gallop, rubs, systolic murmur - GI/Abdominal GI/Abdominal exam: Present: normal bowel sounds, soft, no peritoneal signs. Absent: distended, tenderness - Extremities Exam Extremities exam: Present: warm, radial pulses palpable and symetrical. Absent : calf tenderness, cyanotic, pedal edema - Neurological Exam Neurological exam: Present: CN II-XII intact, oriented X3, no focal deficits. Absent: pronater drift, facial droop, speech deficit - Skin Skin exam: Present: dry, intact <Devon Connors - Last Filed: 09/15/16 16:23> Date of Encounter: 09/15/16 - Discharge Diagnosis (1) Acute and chronic respiratory failure Priority: Primary Status: Acute Qualifiers: Respiratory failure complication: hypoxia Qualified Code(s): J96.21 - Acute and chronic respiratory failure with hypoxia (2) Acute metabolic encephalopathy Priority: Secondary Status: Resolved (3) COPD exacerbation Status: Acute (4) Pneumonia Priority: Primary Status: Suspected Qualifiers: Pneumonia type: aspiration pneumonia Laterality: left Lung location: lower lobe of lung Qualified Code(s): J69.0 - Pneumonitis due to inhalation of food and vomit (5) Hypertension Status: Chronic Qualifiers: Hypertension type: essential hypertension Qualified Code(s): I10 - Essential (primary) hypertension (6) Restless leg syndrome, controlled Status: Chronic (7) Tobacco abuse Priority: Secondary Status: Chronic (8) Obesity (BMI 30-39.9) Priority: Secondary Status: Chronic Date of admission: 09/13/16 03:39 Primary care physician: Flor Nassar CNP Consults: 09/13/16 08:46 PT [Consult to Physical Therapy] [CONS] Routine Comment: Evaluate, develop and implement POC 09/13/16 08:47 OT [Consult to Occupational Therapy] [CONS] Routine Comment: Evaluate, develop and implement POC 09/14/16 15:21 Consult to [facility] [employer] Warm Up [CONS] Routine Reason for SW Consult: Sophia already working on. Hospital course: Ms. Barrera is a 65 year old female - Time Spent with Patient Total time spent providing and/or coordinating discharge services: 42min - Constitutional Vitals: Temp Pulse Resp BP Pulse Ox 98.3 F 88 20 133/80 91 L 09/15/16 07:15 09/15/16 11:00 09/15/16 15:31 09/15/16 11:00 09/15/16 15:31 - Attending Attestation I examined this patient and my medical decision-making was reviewed with the Resident Physician on 09/15/16. I agree with the documented findings, disposition and treatment plan as described except to the extent set forth below. Ms. Barrera is currently admitted for acute encephalopathy, probable aspiration pneumonia, COPD exacerbation. She remains moderate to high risk due to continued hypoxemia and potential for worsening respiratory status. Ms. Barrera is insistent on leaving today. She understands it will be AMA. She is still on 5 liters of oxygen. She understands the risks, including , of leaving against our advice. Exam Alert. Heart reg - not tachy currently Lungs with diffuse wheeze and rhonchi Edema same I/P 1. Probable asp pneumonia 2. COPD exac 3. Acute on chronic hypoxic resp failure Pt leaving AMA today. Discharge completed.
[2016-09-15] MEDS ORDERED: Aminoglycoside Consult 1 EACH MC ONE (17:24)
== END 2016-09-15 17:25 | disposition left against medical advice (07) | DRG 720 ==
LOC: EMEROO 21:31 → 2ANU 21:31 → ICNU 09-13 01:54 → SUATTDRO 09-13 03:39 → 2NENU 09-13 18:43
PROVIDERS: ADMIT Internal Medicine; ATTEND Internal Medicine

== ENCOUNTER 2016-12-19 17:00 | Inpatient (IN) ==
--- NOTE | 2016-12-19 17:02 | Emergency Department Note ---
Disposition Clinical Impression: Congestive heart failure Qualifiers: Congestive heart failure type: systolic Congestive heart failure chronicity: acute on chronic Qualified Code(s): I50.23 - Acute on chronic systolic ( congestive) heart failure Disposition: Admitted As Inpatient Condition: Good Referrals: NO,PCP [Non-Partnered Physician] - Time of Disposition: 18:52 General Adult HPI - General Stated complaint: hemoptysis Time Seen by Provider: 12/19/16 17:01 Nursing Notes Reviewed: Yes Vital Signs Reviewed: Yes - History of Present Illness HPI Narrative: 2 day history of hemoptysis as well as dark sputum's. States that her sputum gets like this when she has pneumonia. Does have a history of COPD is oxygen dependent. No provoking or alleviating factors. He is not on anticoagulants. - Related Data Home Medications Medication Instructions Recorded Confirmed Albuterol Sulfate [Proair Hfa] 2 puff IH Q4H PRN 09/16/15 10/07/16 Lansoprazole [Prevacid] 30 mg PO DAILY 09/16/15 10/07/16 Oxycodone HCl/Acetaminophen 1 tab PO Q4H PRN 09/16/15 10/07/16 [Percocet 10-325 mg Tablet] Pregabalin [Lyrica] 150 mg PO TID 09/16/15 10/07/16 Roflumilast [Daliresp] 500 mcg PO QAM 09/16/15 10/07/16 Tiotropium [Spiriva] 18 mcg IH DAILY 09/16/15 10/07/16 Albuterol Neb [Proventil Neb] 2.5 mg IH Q4H PRN 08/17/16 10/07/16 Simvastatin [Zocor] 20 mg PO HS 08/17/16 10/07/16 rOPINIRole [Requip] 3 mg PO BID 08/17/16 10/07/16 Ipratropium/Albuterol Sulfate 1 puff IH QID PRN 09/13/16 10/07/16 [Combivent Respimat Inhal Irving] Potassium Chloride [Klor-Con 10] 10 meq PO DAILY 09/13/16 10/07/16 amLODIPine [Norvasc] 5 mg PO DAILY 09/13/16 10/07/16 Benzonatate [Tessalon] 100 mg PO TID 10/07/16 10/07/16 Budesonide/Formoterol 160/4.5 2 puff IH BIDR 10/07/16 10/07/16 [Symbicort 160/4.5] Citalopram [CeleXA] 40 mg PO DAILY 10/07/16 10/07/16 Furosemide [Lasix] 40 mg PO DAILY 10/07/16 10/07/16 Ipratropium/Albuterol Sulfate 4 gm IH QID PRN 10/07/16 10/07/16 [Combivent Respimat Inhal Irving] diazePAM [Valium] 5 mg PO HS 10/07/16 10/07/16 Previous Rx's Medication Instructions Recorded Oxygen 3 l IN CONT #1 each 08/20/16 Allergies Allergy/AdvReac Type Severity Reaction Status Date / Time No Known Allergies Allergy Verified 08/28/16 17:47 All systems ED: reviewed and negative except as stated. Constitutional: Reports: fever (High temp last night of 102.0). Denies: chills ENT ED: Denies: congestion Cardiovascular: Reports: dyspnea on exertion. Denies: chest pain, palpitations , syncope Respiratory: Reports: cough, dyspnea, hemoptysis, sputum production (Hemoptysis as well as dark colored sputum's.) Gastrointestinal: Reports: abdominal pain (Left lower quadrant). Denies: nausea , vomiting, diarrhea, hematemesis, melena, hematochezia Genitourinary: Denies: urgency, dysuria, frequency, hematuria Musculoskeletal: Reports: back pain (Chronic) Neurological: Denies: headache Past Medical History - Past Medical History Attestation: Yes The following information was validated with the patient. Medical history: Reports: aortic aneurysm, arthritis, asthma, COPD, diabetes, hyperlipidemia, other Surgical history: Reports: other (carpal tunnel, cervical disc) Psychiatric history: Reports: anxiety, depression COLD TYPE ARTIST history: Reports: no COLD TYPE ARTIST history - Social History Smoking Status: Current every day smoker Smokeless Tobacco Status: No Alcohol use: Reports: occasionally Drug use: Reports: none Physical Exam - General Limitations: no limitations General appearance: alert, in distress (Appears mildly dyspneic but reports this is normal breathing for her.) - Head Head exam: atraumatic, normocephalic, normal inspection - Eye Eye exam: Present: normal appearance, PERRL, EOMI. Absent: scleral icterus - ENT ENT exam: normal exam, normal oropharynx, mucous membranes moist - Neck Neck exam: Present: normal inspection, full ROM, trachea midline - Chest Chest inspection: Present: normal inspection, symmetric chest wall rise. Absent : tenderness - Respiratory Respiratory exam: Present: respiratory distress (Appears mildly dyspneic but assures us that this is her normal breathing.), wheezes - Cardiovascular Cardiovascular exam: Present: regular rate, normal rhythm, normal heart sounds - Abdominal Exam Abdominal exam: Present: soft, Non-Tender, normal bowel sounds. Absent: tenderness, distention, guarding, rebound, rigidity, organomegaly - Extremities Exam Extremities exam: Present: normal inspection, full ROM, normal capillary refill , pedal edema, other (Pitting edema to mid tibias.). Absent: tenderness - Back Exam Back exam: Present: normal inspection, full ROM. Absent: tenderness, CVA tenderness (R), CVA tenderness (L) - Neurological Exam Neurological exam: Present: alert, oriented X3 - Psychiatric Psychiatric exam: Present: normal affect, normal mood - Skin Skin exam: Present: warm, dry, intact, normal color. Absent: rash, cyanosis, diaphoresis Course Course Narrative: Female patient visiting the emergency department by EMS for hemoptysis as well as a brown sputum. She states this is been going on for 2 days. She does have history of COPD and is oxygen dependent at home. She states she does not feel any dyspneic this is out of the ordinary for her. She states she generally runs in the high 80s oxygen saturation and she is in the low 90s at this time. She is not on any blood thinners. He reports a high temp of 102.0 at home last night. She states she frequently gets pneumonia. She denies any nausea vomiting or diarrhea. She does report a left lower quadrant pain. On exam she has wheezing diffusely in her lungs. She has truncal obesity. Her heart tones are normal and her abdomen is soft and nontender on palpation. She does appear mildly dyspneic however she reports this is how she normally breathes. Will give patient a DuoNeb and a dose of steroids while she is here review the chest x-ray and do a cardiac workup. She does report that her legs have been swollen more than normal and they have just increased her Lasix dose. She is not have rales on exam. - Reevaluation(s) Reevaluation #1: Patient has a CHF exacerbation. Her BNP is elevated and she shows diffuse pulmonary edema on her chest x-ray. We will admit patient for IV diuresis. We have given the patient aspirin due to her slightly elevated troponin. She is having mild hemoptysis. I feel that the increased troponin outweighs the risk of further bleeding with her hemoptysis. We will treat her with aspirin. Time: 18:51 Vital Signs Temperature 98.6 F 12/19/16 17:01 Pulse Rate 84 12/19/16 17:01 Respiratory Rate 20 12/19/16 17:01 Blood Pressure 146/83 12/19/16 17:01 O2 Sat by Pulse Oximetry 91 12/19/16 17:01 Temperature 98.6 F 12/19/16 17:01 Pulse Rate 72 12/19/16 18:03 Respiratory Rate 22 12/19/16 18:03 Blood Pressure 149/75 12/19/16 18:03 O2 Sat by Pulse Oximetry 94 12/19/16 18:03 Oxygen Delivery Oxygen Delivery Nasal Cannula Medical Decision Making - Medical Records Medical records reviewed: Yes I reviewed the patient's medical records. - Lab Data Lab results reviewed: Yes I reviewed the patient's lab results. Result diagrams: 12/19/16 17:29 12/19/16 17:29 Lab Results 12/19/16 12/19/16 12/19/16 Range/Units 17:29 17:29 17:29 WBC 9.2 (4.3-11.1) K/mcL RBC 4.24 (3.82-4.97) M/mcL Hgb 10.8 L (11.5-15.4) g/dL Hct 38.4 (35.3-44.9) % MCV 90.6 (83.0-100.0) fL MCH 25.5 L (28.0-33.3) pg MCHC 28.1 L (31.6-35.5) g/dL RDW 16.0 H (11.5-14.5) % Plt Count 176 (140-400) K/mcL MPV 12.2 (9.4-12.4) fL Immature Gran % 0.4 (0-4) % Seg Neutrophils % 69.6 % Lymphocytes % 19.2 % Monocytes % 8.2 % Eosinophils % 2.1 % Basophils % 0.5 % Neutrophils # 6.4 (1.6-8.9) K/mcL Lymphocytes # 1.8 (0.6-4.6) K/mcL Monocytes # 0.8 (0.0-1.3) K/mcL Eosinophils # 0.2 (0.0-0.6) K/mcL Basophils # 0.1 (0.0-0.2) K/mcL Platelet Estimate Normal (Normal) Large Platelets Present A (Not Present) Hypochromasia Present A (Not Present) Sodium 141 (136-145) mEq/L Potassium 3.7 (3.5-4.5) mEq/L Chloride 97 L (98-109) mEq/L Carbon Dioxide 38 H (19-29) mEq/L BUN 13 (7-20) mg/dL Creatinine 0.77 (0.57-1.11) mg/dL Est GFR ( Amer) > 60 (> 60) Est GFR (Non-Af Amer) > 60 (> 60) BUN/Creatinine Ratio 17 (6-26) Glucose 93 (70-99) mg/dL Calculated Osmolality 292 (280-300) Calcium 9.0 (8.6-10.8) mg/dL Troponin I 0.06 H* (0-0.03) ng/mL B-Natriuretic Peptide (0-100) pg/mL 12/19/16 Range/Units 17:29 WBC (4.3-11.1) K/mcL RBC (3.82-4.97) M/mcL Hgb (11.5-15.4) g/dL Hct (35.3-44.9) % MCV (83.0-100.0) fL MCH (28.0-33.3) pg MCHC (31.6-35.5) g/dL RDW (11.5-14.5) % Plt Count (140-400) K/mcL MPV (9.4-12.4) fL Immature Gran % (0-4) % Seg Neutrophils % % Lymphocytes % % Monocytes % % Eosinophils % % Basophils % % Neutrophils # (1.6-8.9) K/mcL Lymphocytes # (0.6-4.6) K/mcL Monocytes # (0.0-1.3) K/mcL Eosinophils # (0.0-0.6) K/mcL Basophils # (0.0-0.2) K/mcL Platelet Estimate (Normal) Large Platelets (Not Present) Hypochromasia (Not Present) Sodium (136-145) mEq/L Potassium (3.5-4.5) mEq/L Chloride (98-109) mEq/L Carbon Dioxide (19-29) mEq/L BUN (7-20) mg/dL Creatinine (0.57-1.11) mg/dL Est GFR ( Amer) (> 60) Est GFR (Non-Af Amer) (> 60) BUN/Creatinine Ratio (6-26) Glucose (70-99) mg/dL Calculated Osmolality (280-300) Calcium (8.6-10.8) mg/dL Troponin I (0-0.03) ng/mL B-Natriuretic Peptide 511 H (0-100) pg/mL - Radiology Data Radiology results reviewed: Yes I reviewed the patient's radiology results. - EKG Data EKG #1 EKG attestation: Yes I reviewed and interpreted this EKG. EKG results narrative: Normal sinus rhythm at a rate of 73. NC interval is 172. QRS duration is 94. QT 361. QTC is 387. No signs of acute ischemia. There is some T-wave flattening in leads V4 V5 and V6. This was not present on previous EKG dated . There are no other changes from the previous EKG. Attestation Statement - Attestation Attestation: I examined this patient and my medical decision-making was reviewed with the PRINT DESIGNER/PA/Advanced Practice Nurse/Resident Physician. I agree with the documented findings, disposition and treatment plan as described except to the extent set forth below. Face to face time provided Patient arrives via EMS complaining of blood-streaked hemoptysis. She takes no blood thinners. She states she has a history of pneumonia on several occasions over the past 1 month. Pulse ox 93% on supplemental oxygen. She states her baseline pulse ox is 86%. She is not tachycardic nor is she subjectively dyspneic. 18:43: Chest x-ray results reviewed by me. Labs indicate a marginally elevated troponin. She does describe scant hemoptysis but an elevated troponin in the setting of a CHF exacerbation I thought warranted aspirin which outweighed the risks of making any bleeding problem worse. Patient will be admitted
[2016-12-19] MEDS ORDERED: Ipratropium/Albuterol Neb 3 ML IH ONE (17:09)
[2016-12-19] MEDS ORDERED: methylPREDNISolone 125 MG/2 ML VIAL IVP ONE (17:18)
[2016-12-19 18:08] LABS: Basophils # 0.1 K/mcL (0.0-0.2); Basophils % 0.5 %; Eosinophils # 0.2 K/mcL (0.0-0.6); Eosinophils % 2.1 %; Hematocrit 38.4 % (35.3-44.9); Hemoglobin 10.8 g/dL (11.5-15.4); Immature Granulocytes % 0.4 % (0-4); Lymphocytes # 1.8 K/mcL (0.6-4.6); Lymphocytes % 19.2 %; Mean Corpuscular HGB Conc 28.1 g/dL (31.6-35.5); Mean Corpuscular Hemoglobin 25.5 pg (28.0-33.3); Mean Corpuscular Volume 90.6 fL (83.0-100.0); Mean Platelet Volume 12.2 fL (9.4-12.4); Monocytes # 0.8 K/mcL (0.0-1.3); Monocytes % 8.2 %; Neutrophils # 6.4 K/mcL (1.6-8.9); Platelet Count 176 K/mcL (140-400); Red Blood Count 4.24 M/mcL (3.82-4.97); Segmented Neutrophils % 69.6 %
[2016-12-19 18:20] LABS: BUN/Creatinine Ratio 17 (6-26); Blood Urea Nitrogen 13 mg/dL (7-20); Carbon Dioxide 38 mEq/L (19-29); Chloride 97 mEq/L (98-109); Glucose 93 mg/dL (70-99); Osmolality,Calculated 292 (280-300); Potassium 3.7 mEq/L (3.5-4.5); Sodium 141 mEq/L (136-145); eGFR For African Americans > 60 (> 60); eGFR For Non-African Americans > 60 (> 60)
[2016-12-19 18:22] LABS: Hypochromasia Present (Not Present); Large Platelets Present (Not Present); Platelet Estimate Normal (Normal)
[2016-12-19] MEDS ORDERED: *HR* OxyCODONE/APAP 10/325 TABLET PO ONE (18:27)
[2016-12-19] MEDS ORDERED: Furosemide 40 MG/4 ML VIAL IVP ONE (18:27)
[2016-12-19] MEDS ORDERED: Aspirin 325 MG TABLET PO ONE (18:42)
[2016-12-19] MEDS ORDERED: Naloxone 0.4 MG/ML INJ IVP PRN (19:41)
[2016-12-19] MEDS ORDERED: MOM Conc 10 ML UD.LIQ PO PRN (20:04)
[2016-12-19] MEDS ORDERED: Ondansetron 4 MG/2 ML VIAL IVP PRN (20:04)
[2016-12-19] MEDS ORDERED: Ipratropium/Albuterol Neb 3 ML IH PRN (20:19)
--- NOTE | 2016-12-19 21:27 | Internal Med History&Physical ---
<Rony Whitney - Last Filed: 12/20/16 23:20> Date of Encounter: 12/20/16 Time of Encounter: 16:30 Assessment and Plan (1) Congestive heart failure Current visit: Yes Status: Acute Assess: Ms. Barrera presents with chief complaint of hemoptysis and shortness of breath for the past 48 hours. Patient states that she has history of COPD and is O2 dependent at home using 2-2.5 L continuously. Patient has bilateral pedal edema which she also states has become worse recently. CXR in the ED taken today (-12/19/16) shows left pleural effusion, CHF, and cardiomegaly. Plan: Hold steroids due to current CHF exacerbation Lasix ordered to diurese fluids and address left pleural effusion 40 mg BID IVP Supplemental O2 ordered and to be titrated if Spo2 <92% Continuous cardiac telemetry ordered Monitor patient and vital signs Qualifiers: Congestive heart failure type: systolic Congestive heart failure chronicity : acute on chronic Qualified Code(s): I50.23 - Acute on chronic systolic ( congestive) heart failure (2) Acute exacerbation of chronic obstructive airways disease Current visit: Yes Status: Acute Assess: Patient presents with acute SOB related to chronic obstructive airways disease. CHF exacerbation to be addressed immediately and typical antibiotic combination for COPD exacerbation (zithromycin, doxycycline, and levaquin) to be held due to QT prolongation. Patient should be assessed in a.m. for CHF status and will consider addition of COPD antibiotics if CHF symptoms show improvement. Plan: BiPap ordered at bedtime based on ABGs drawn late today Supplemental O2 ordered with titration if SpO2 <92% Monitor SpO2 and vital signs DuoNebs 3 ml IH Q4 PRN Continue patient's inhalers and COPD medications (3) SOB (shortness of breath) Current visit: Yes Status: Acute Assess: Patient presents with acute SOB related to chronic obstructive airways disease. CHF exacerbation to be addressed immediately and typical antibiotic combination for COPD exacerbation (zithromycin, doxycycline, and levaquin) to be held due to QT prolongation. Patient should be assessed in a.m. for CHF status and will consider addition of COPD antibiotics if CHF symptoms show improvement. Plan: BiPap ordered at bedtime based on ABGs drawn late today Supplemental O2 ordered with titration if SpO2 <92% Monitor SpO2 and vital signs DuoNebs 3 ml IH Q4 PRN Continue patient's inhalers and COPD medications (4) HWOARD (obstructive sleep apnea) Current visit: Yes Status: Chronic Assess: Patient presents with chronic history of obstructive sleep apnea. States she is pursue CPAP at home but does not use it consistently. ABGs drawn today () merit BiPAP use at bedtime daily while inpatient. Plan: BiPap ordered daily at bedtime Supplemental O2 ordered otherwise Monitor patient's SpO2 and vitals (5) Hyperlipidemia Current visit: Yes Status: Acute Assess: Patient presents with history of chronic hyperlipidemia. Plan: Continue Zocor Qualifiers: Hyperlipidemia type: unspecified Qualified Code(s): E78.5 - Hyperlipidemia , unspecified (6) Obesity (BMI 30-39.9) Current visit: Yes Status: Chronic Assess: Patient presents with obesity and BMI of 38.5. Plan: Cardiac and Diabetic diets ordered Dietary education consult ordered (7) DVT prophylaxis Current visit: No Status: Acute Assess: Patient to receive DVT prophylaxis due to inpatient protocol which will be mechanical rather than pharmacological due to current bleeding. Bilateral Doppler of legs to be done prior to SCDs being placed. Plan: Bilateral Doppler of lower legs ordered SCDs to be placed on patient following results of Doppler Internal Medicine - H&P: HPI Chief complaint: Hemoptysis/SOB Admitted From: Emergency Dept Plans for Post Hospital Care: Home History of present illness: Ms. Barrera is a 66 year old female who presents from the ED with chief complaint of hemoptysis and shortness of breath for the past 48 hours. Patient states that she has history of COPD and is O2 dependent at home using 2-2.5 L continuously. Patient also states this hemoptysis usually happens when she has pneumonia which she reports having 2x within the past year. Mrs. Barrera states that she had a fever of 102.0 at home last night. Temperature in the ED was 98.6. She denies nausea, vomiting, diarrhea, chest pain, palpitations, chills, pre-syncope or syncope. She reports constipation due to pain medication. Patient is obese with BMI of 38.5. Upon examination, patient has expiratory wheezes bilaterally in all lobes and has bilateral pedal edema which she reports as worsening more than usual. CXR in the ED shows left pleural effusion, CHF, and cardiomegaly. She was given aspirin in the ED due to increased troponin level which outweighed risk of bleeding with hemoptysis. She was also given a dose of steroids and Lasix. Patient has history of aortic aneurysm which she reports was recently checked and found not to have increased in size, arthritis, asthma, CHF, COPD, pre-diabetes, hypertension, hyperlipidemia, emphysema, restless legs syndrome, sleep apnea, and bilateral neuropathy in her lower extremities. Patient is to be admitted as inpatient status with primary diagnosis of CHF exacerbation and secondary diagnosis of COPD exacerbation. Patient will be placed on continuous cardiac telemetry, supplemental O2, and troponins will be trended x2. Patient will continue to receive Lasix to diurese. Antibiotics for COPD exacerbation (zithromycin, doxycycline, and levaquin) will be held due to QT prolongation and patient's cardiac symptoms. Patient will be reevaluated in the a.m. to assess CHF status and to determine if antibiotics are necessary. Patient to be monitored closely. Past Med Surg Social Fam HX - Past Medical History Medical history: aortic aneurysm, arthritis, asthma, COPD, diabetes, hyperlipidemia, hypertension, other Psychiatric history: anxiety, depression - Past Surgical History Surgical History: other (Carpal tunnel and cervical disc) - Social History Smoking Status: Current every day smoker Packs per day: 1/2 PPD Smokeless Tobacco Status: No Alcohol use: occasionally Drug use: none Occupational status: unemployed Current living situation: Home - Independent Activity Level: Uses cane/walker Recent Out of Country Travel Within the Last 8 Weeks: No Exposure or Possible Exposure to Illness During Travel: No - Family History Father Race: Family Member Ethnicity: Non- Living Status: Age at : 72 Cause of : PR Hx Family Cardiac Disorders: Yes (PR) Mother Adopted: No Race: Family Member Ethnicity: Non- Living Status: Age at : 44 Cause of : Car accident Hx Family Cardiac Disorders: No Hx Family Respiratory Disorders: No Hx Family Cancer: No Hx Family Endocrine Disorder: Yes (thyroid) Brother Race: Family Member Ethnicity: Non- Living Status: Still Living Age at : 44 Cause of : PR Hx Family Cardiac Disorders: Yes (PR) Sister Race: Family Member Ethnicity: Non- Living Status: Still Living Hx Family Cancer: Yes (Breast) Internal Medicine - H&P: Meds Albuterol Sulfate [Proair Hfa] 2 puff IH PRN PRN 09/16/15 [History] Lansoprazole [Prevacid] 30 mg PO HS 09/16/15 [History] Pregabalin [Lyrica] 150 mg PO TID 09/16/15 [History] Tiotropium [Spiriva] 1 cap IH DAILY 09/16/15 [History] Albuterol Neb [Proventil Neb] 2.5 mg IH Q4H PRN 08/17/16 [History] Simvastatin [Zocor] 20 mg PO HS 08/17/16 [History] rOPINIRole [Requip] 3 mg PO BID 08/17/16 [History] Ipratropium/Albuterol Sulfate [Combivent Respimat Inhal [place]] 1 puff IH QID PRN 09/13/16 [History] Potassium Chloride [Klor-Con 10] 10 meq PO HS 09/13/16 [History] amLODIPine [Norvasc] 5 mg PO DAILY PRN 09/13/16 [History] Budesonide/Formoterol 160/4.5 [Symbicort 160/4.5] 2 puff IH BIDR 10/07/16 [ History] Furosemide [Lasix] 40 mg PO DAILY 10/07/16 [History] Celecoxib [Celebrex] 200 mg PO DAILY 12/19/16 [History] Oxygen 2.5 l IN CONT 12/19/16 [History] Docusate [Colace] 100 mg PO BID PRN 12/20/16 [History] Loratadine [Allergy Relief] 10 mg PO DAILY 12/20/16 [History] Oxycodone HCl [Oxycodone HCl ER] 15 mg PO Q6H PRN 12/20/16 [History] PredniSONE [Dario] 5 mg PO DAILY 12/20/16 [History] clonazePAM [Klonopin] 0.5 mg PO DAILY 12/20/16 [History] hydroCHLOROthiazide [Hydrochlorothiazide] 25 mg PO DAILY 12/20/16 [History] Allergies No Known Allergies Allergy (Verified 12/19/16 19:30) All Systems PM: A 10-system review of systems was performed and is negative for pertinent findings except as documented above in the HPI. - Constitutional Constitutional: as per HPI, fever(s) (Reported as 102.0 last night by patient. 98.6 in the ED today (12/19/16)), no chills, no night sweats - EENT Eyes: no change in vision, no discharge, no pain, no photophobia Ears: no ear discharge, no ear pain, no tinnitus Nose, mouth and throat: no dysphagia, no nasal discharge, no neck pain, no sore throat - Breasts Breasts: as per HPI - Cardiovascular Cardiovascular ROS IM: as per HPI, dyspnea, dyspnea on exertion, no chest pain, no diaphoresis, no lightheadedness, no palpitations, no syncope - Respiratory Respiratory: as per HPI, dyspnea, hemoptysis, dyspnea on exertion, no cough, no wheezing, no excessive phlegm production - Gastrointestinal Gastrointestinal: as per HPI, constipation, no abdominal pain, no diarrhea, no hematemesis, no hematochezia, no melena, no nausea, no vomiting - Genitourinary Genitourinary: no change in urinary stream, no dysuria, no flank pain, no hematuria Menstruation: as per HPI - Musculoskeletal Musculoskeletal ROS IM: as per HPI, back pain, no numbness, no tingling - Integumentary Integumentary IM: no rash, no unusual bruising - Neurological Neurological ROS: no confusion, no convulsions, no focal weakness, no numbness, no tingling, no tremor(s) - Psychiatric Psychiatric: as per HPI - Endocrine Endocrine IM: as per HPI - Hematologic/Lymphatic Hematologic/Lymphatic: no easy bruising - Allergic/Immunologic Allergic/Immunologic: as per HPI - Constitutional Vitals: Temp Pulse Resp BP Pulse Ox 98.6 F 72 24 136/85 94 12/19/16 17:01 12/19/16 18:03 12/19/16 19:31 12/19/16 19:31 12/19/16 19:31 General appearance: Present: cooperative, A&O X 3, obese, severe distress (SOB) , answers questions appropriately - Head Head exam: Present: atraumatic, normocephalic - Eye Eye exam: Present: PERRL, conjuntiva pink, sclera anicteric Pupils: Present: PERRL - ENT ENT exam: Present: normal exam, normal external ear exam - Neck Neck exam general surgery: Present: supple, trachea midline. Absent: lymphadenopathy - Respiratory Respiratory exam: Present: accessory muscle use, respiratory distress, wheezes ( Expiratory in all lobes bilaterally) - Cardiovascular Cardiovascular exam: Present: RRR, +S1, +S2. Absent: diastolic murmur, gallop, rubs, systolic murmur - GI/Abdominal GI/Abdominal exam: Present: normal bowel sounds, soft, tenderness - Rectal Rectal exam: Present: deferred - Additional comments: exam deferred. - Extremities Exam Extremities exam: Present: pedal edema, warm, radial pulses palpable and symetrical. Absent: calf tenderness, cyanotic - Back Exam Back exam: Present: normal inspection, tenderness - Neurological Exam Neurological exam: Present: CN II-XII intact, oriented X3, no focal deficits. Absent: pronater drift, facial droop, speech deficit - Psychiatric Psychiatric exam: Present: normal affect, normal mood - Skin Skin exam: Present: dry, intact Internal Med - H&P Results - Labs CBC & Chem 7: 12/20/16 05:25 12/20/16 05:25 - EKG Data EKG shows normal: sinus rhythm - EKG Data Prior EKG available for review: yes EKG comments: 12/19/16 22:24 EKG dated 09/12/16 shows sinus rhythm. EKG dated 12/19/16 shows sinus rhythm with occasional supreventricular premature complexes, low QRS voltage in precordial leads [QRS deflection < 1.0 mV in chest leads]. Pattern consistent with pulmonary disease. - Diagnostic Studies Chest x-ray Additional comments: 2-View CXR of the chest dated 12/19/16 shows: Pulmonary vascular congestion with moderate left pleural effusion. There is cardiomegaly. There are degenerative changes of the spine with a chronic appearing compression fracture deformity of T12. There may also be a chronic superior endplate fracture of T11. Overall Impression: CHF with pleural effusion. <Navdeep Whaley - Last Filed: 12/21/16 04:38> Date of Encounter: 12/21/16 Internal Medicine - H&P: HPI History of present illness: Ms. Barrera is a 66 year old female All Systems PM: A 10-system review of systems was performed and is negative for pertinent findings except as documented above in the HPI. - Constitutional Vitals: Temp Pulse Resp BP Pulse Ox 99.2 F 77 18 107/65 91 12/21/16 03:38 12/21/16 03:50 12/21/16 03:38 12/21/16 03:38 12/21/16 03:38 Internal Med - H&P Results - Labs CBC & Chem 7: 12/20/16 05:25 12/20/16 05:25 Labs: Short CBC 12/20/16 Range/Units 05:25 WBC 9.7 (4.3-11.1) K/mcL Hgb 11.1 L (11.5-15.4) g/dL Hct 37.7 (35.3-44.9) % Plt Count 166 (140-400) K/mcL Neutrophils # 8.6 (1.6-8.9) K/mcL BMP 12/20/16 05:25 Sodium 141 Potassium 4.3 Chloride 99 Carbon Dioxide 34 H BUN 17 Creatinine 0.84 Glucose 112 H Calcium 9.1 Cardiac Enzymes 12/20/16 Range/Units 05:25 Troponin I 0.04 H* (0-0.03) ng/mL Liver Function 12/20/16 Range/Units 05:25 Total Bilirubin 0.3 (0.2-1.2) mg/dL AST 12 (5-34) Units/L ALT 15 (0-55) Units/L Alkaline Phosphatase 88 (38-126) Units/L Albumin 3.1 L (3.5-5.0) g/dL - ABG Interpretation ABG results: 12/19/16 12/20/16 12/20/16 21:48 06:34 16:38 ABG pH 7.35 7.33 7.33 ABG pCO2 71 H* 75 H* 75 H* ABG pO2 65 L 93 64 L ABG HCO3 39.2 H 39.5 H 39.5 H ABG Total CO2 41.4 H 41.8 H 41.8 H ABG O2 Saturation 91 L 97 91 L ABG Base Excess 10.6 H 10.7 H 11.1 H 12/20/16 12/21/16 20:54 01:45 ABG pH 7.31 L 7.36 ABG pCO2 89 H* 74 H* ABG pO2 74 L 84 L ABG HCO3 44.8 H 41.8 H ABG Total CO2 47.5 H 44.1 H ABG O2 Saturation 93 L 96 ABG Base Excess 14.9 H 13.5 H - Impressions ITS Impressions Chest X-Ray 12/20/16 20:32 IMPRESSION: 1. Findings suggesting pulmonary edema with silhouetting of the left hemidiaphragm likely reflecting atelectasis and effusion. D/ / Joe Augustin MD / Joe Augustin MD Interpreting Provider: Joe Augustin MD
--- NOTE | 2016-12-19 21:49 | Event Note ---
Date of Encounter: 12/19/16 Time of Encounter: 21:43 I examined this patient and my medical decision-making was reviewed with Mr. Whitney. I agree with the documented findings, disposition and treatment plan as described except to the extent set forth below. Briefly, 66-year-old female with history of COPD on home oxygen, congestive heart failure, hypertension, diabetes who presented to the emergency room due to worsening shortness of breath over the past 48 hours associated with some blood in the sputum. Patient is accompanied by her daughter. According to the patient and the daughter, there is worsening swelling in the legs. Patient reports she does not check her weight daily. On exam, patient is drowsy but arousable. She is on 4 L nasal cannula. Examination reveals diffuse wheezing bilateral lungs. The patient is also noted on the posterior aspect of the lungs at the bases. Laboratory data reviewed personally. Chest x-ray personally reviewed and compared with x-ray from September-reveals pulmonary vascular congestion. Also reveals left-sided pleural effusion. EKG personally reviewed-sinus rhythm with supraventricular premature contractions. No ST-T wave changes suggestive of ischemia. Prior echocardiogram reviewed and reveals preserved ejection fraction with concentric hypertrophy. Assessment/plan: 1. Acute on chronic hypoxic respiratory failure-admit the patient to inpatient status. Expect the patient to be in the hospital at least overnight. High risk due to risk of worsening respiratory status which may require intubation and mechanical ventilation. Expected discharge disposition is to home. Suspect hypercapnia. Will obtain ABG stat. BiPAP at bedtime with oxygen supplementation. Dysphagia failure likely related to CHF exacerbation with or without COPD exacerbation. 2. CHF exacerbation-diuresis. Daily weights and strict input and output monitoring. 3. COPD-DuoNeb's. Home breathing treatments. ABG. BiPAP at bedtime. Patient states she is not compliant with her CPAP machine due to suffocating sensation. Patient will likely need follow-up with sleep physician as an outpatient to address issues with her PAP therapy. Hold off on steroids for now as the patient's symptoms appear to be related to CHF exacerbation. If she does not improve with diuresis, will consider antibiotics and steroids for possible COPD exacerbation. 4. Restless leg syndrome GLO Martino
[2016-12-19 22:00] LABS: ABG Base Excess 10.6 mEq/L (-2.0 to 3.0); ABG HCO3 39.2 mEQ/L (21-27); ABG Oxygen Saturation 91 % (95-98); ABG PH 7.35 pH Units (7.32-7.45); ABG PO2 65 mmHg (85-104); ABG TCO2 41.4 mEq/L (20-26)
[2016-12-19 22:01] LABS: Blood Gas FiO2 36 %
[2016-12-19 22:03] LABS: ABG PCO2 71 mmHg (35-45)
[2016-12-19] MEDS ORDERED: amLODIPine 5 MG TABLET PO PRN (23:25)
[2016-12-19] MEDS ORDERED: NON-FORMULARY MEDICATION 1 EACH EACH (Ipratropium/Albuterol Sulfate [Combivent Respimat In IH PRN ×2 (23:25)
[2016-12-19] MEDS ORDERED: Albuterol 2.5 MG/3 ML NEBULIZER IH PRN (23:25)
[2016-12-20] MEDS ORDERED: Pregabalin 75 MG CAPSULE PO ONE (00:30)
[2016-12-20 00:48] LABS: Hemoglobin 11.1 g/dL (11.5-15.4)
[2016-12-20] MEDS: *HR* OxyCODONE/APAP 10/325 TABLET PO PRN ×2 (00:50→11:40)
[2016-12-20 05:33] LABS: Basophils % 0.2 %; Hemoglobin 11.1 g/dL (11.5-15.4)
[2016-12-20 05:34] LABS: Hematocrit 37.7 % (35.3-44.9); Immature Granulocytes % 1.2 % (0-4); Lymphocytes # 0.8 K/mcL (0.6-4.6); Lymphocytes % 8.7 %; Mean Corpuscular HGB Conc 29.4 g/dL (31.6-35.5); Mean Corpuscular Hemoglobin 26.3 pg (28.0-33.3); Mean Corpuscular Volume 89.3 fL (83.0-100.0); Mean Platelet Volume 12.4 fL (9.4-12.4); Monocytes # 0.1 K/mcL (0.0-1.3); Monocytes % 1.2 %; Neutrophils # 8.6 K/mcL (1.6-8.9); Platelet Count 166 K/mcL (140-400); Red Blood Count 4.22 M/mcL (3.82-4.97); Segmented Neutrophils % 88.7 %
[2016-12-20 06:02] LABS: INR 1.1
[2016-12-20 06:16] LABS: Hypochromasia Present (Not Present); Macrocytosis Present (Not Present); Platelet Estimate Normal (Normal); Polychromasia 1+ (Not Present)
[2016-12-20 06:17] LABS: Large Platelets Present (Not Present)
[2016-12-20 06:22] LABS: Alanine Aminotransferase 15 Units/L (0-55); Albumin 3.1 g/dL (3.5-5.0); Albumin/Globulin Ratio 0.7 (1.1-2.2); Alkaline Phosphatase 88 Units/L (38-126); Aspartate Amino Transferase 12 Units/L (5-34); BUN/Creatinine Ratio 20 (6-26); Bilirubin,Total 0.3 mg/dL (0.2-1.2); Blood Urea Nitrogen 17 mg/dL (7-20); Calcium 9.1 mg/dL (8.6-10.8); Carbon Dioxide 34 mEq/L (19-29); Chloride 99 mEq/L (98-109); Chol/HDL Ratio 3.5 (0-4.9); Cholesterol 176 mg/dL (< 200); Globulin 4.2 g/dL (2.4-3.5); Glucose 112 mg/dL (70-99); HDL Cholesterol 50 mg/dL (40-59); LDL Cholesterol,Calculated 110 mg/dL (0-99); Magnesium 2.3 mg/dL (1.6-2.6); Osmolality,Calculated 294 (280-300); Potassium 4.3 mEq/L (3.5-4.5); Sodium 141 mEq/L (136-145); Total Protein 7.3 g/dL (6.0-8.3); Triglycerides 78 mg/dL (< 150); Uric Acid 6.5 mg/dL (2.6-6.0); eGFR For African Americans > 60 (> 60); eGFR For Non-African Americans > 60 (> 60)
[2016-12-20 07:55] LABS: ABG Base Excess 10.7 mEq/L (-2.0 to 3.0); ABG HCO3 39.5 mEQ/L (21-27); ABG Oxygen Saturation 97 % (95-98); ABG PH 7.33 pH Units (7.32-7.45); ABG PO2 93 mmHg (85-104); ABG TCO2 41.8 mEq/L (20-26); Blood Gas FiO2 40 %
[2016-12-20] MEDS: Budesonide/Formoterol 160/4.5 MDI IH SCH ×2 (07:55→23:19)
[2016-12-20 07:57] LABS: ABG PCO2 75 mmHg (35-45)
[2016-12-20] MEDS: Furosemide 40 MG/4 ML VIAL IVP SCH ×2 (08:52→16:27)
[2016-12-20] MEDS: Pantoprazole 40 MG VIAL IVP SCH (08:52)
[2016-12-20] MEDS: Pregabalin 75 MG CAPSULE PO SCH ×4 (08:53→22:31)
[2016-12-20] MEDS: Celecoxib 100 MG CAPSULE PO SCH ×2 (08:59→10:38)
[2016-12-20] MEDS ORDERED: Tiotropium 18 MCG inhalation IH SCH (10:00)
[2016-12-20] MEDS ORDERED: *HR* Dextrose 50 % in Water (Syg) 50 ML SYRINGE IVP PRN (14:54)
[2016-12-20] MEDS ORDERED: Dextrose Gel 15 GM PO PRN ×2 (14:54)
[2016-12-20] MEDS ORDERED: D5% in Water 1,000 ML IVC PRN (14:54)
--- NOTE | 2016-12-20 14:54 | Internal Med Progress Note ---
Date of Encounter: 12/20/16 Time of Encounter: 14:39 - Assessment and plan (1) Acute exacerbation of chronic obstructive airways disease Current Visit: Yes Status: Acute Assessment and plan: Continue scheduled bronchodilators and supplemental O2; steroids have been held due to acute CHF and volume overload. ABG reviewed, likely chronic compensated respiratory acidosis, pH at 7.33, pCO2 at 75; noted to be noncompliant with BiPAP, compliance reinforced during sleep; continue Symbicort; (2) Acute diastolic (congestive) heart failure Current Visit: Yes Status: Acute Assessment and plan: Continue IV Lasix, along with fluid restriction and monitor urine output. BiPAp support as above. Check 2D Echocardiogram. (3) Diabetes mellitus Current Visit: Yes Status: Chronic Assessment and plan: noted to have hyperglycemia despite not being on steroids; check HbA1C and start sliding scale insulin. Diabetic diet; Qualifiers: Diabetes mellitus type: type 2 Diabetes mellitus complication status: with hyperglycemia Diabetes mellitus shelter insulin use: without extermination supervisor use Qualified Code(s): E11.65 - Type 2 diabetes mellitus with hyperglycemia (4) HOWARD (obstructive sleep apnea) Current Visit: Yes Status: Chronic (5) Acute and chronic respiratory failure Current Visit: Yes Status: Chronic Qualifiers: Respiratory failure complication: hypoxia and hypercapnia Qualified Code(s) : J96.21 - Acute and chronic respiratory failure with hypoxia; J96.22 - Acute and chronic respiratory failure with hypercapnia (6) Hypertension Current Visit: Yes Status: Chronic Qualifiers: Hypertension type: essential hypertension Qualified Code(s): I10 - Essential (primary) hypertension - Subjective Interval history: Drowsy, on BiPAP, unable to provide history. Per RN, was reluctant to wear BiPAP since this morning despite being lethargic with abnormal ABG, and was just agreeable to it; she is also not compliant with CPAP at home; - Constitutional Vitals: Temp Pulse Resp BP Pulse Ox 97.8 F 87 16 103/59 88 12/20/16 10:47 12/20/16 10:47 12/20/16 10:47 12/20/16 10:47 12/20/16 10:47 General appearance: Present: mild distress (on BiPAP). Absent: answers questions appropriately - Respiratory Respiratory exam: Present: CTAB (coarse breath sounds B/L). Absent: accessory muscle use, rales, rhonchi, wheezes - Cardiovascular Cardiovascular exam: Present: RRR, +S1, +S2. Absent: diastolic murmur, gallop, rubs, systolic murmur - GI/Abdominal GI/Abdominal exam: Present: distended (tympanic note, central obesity), normal bowel sounds, soft, no peritoneal signs. Absent: tenderness - Extremities Exam Extremities exam: Present: pedal edema, warm, radial pulses palpable and symetrical. Absent: calf tenderness, cyanotic Internal Medicine: Result - Labs CBC & Chem 7: 12/20/16 05:25 12/20/16 05:25 Labs: Short CBC 12/19/16 12/20/16 Range/Units 23:56 05:25 WBC 9.7 (4.3-11.1) K/mcL Hgb 11.1 L 11.1 L (11.5-15.4) g/dL Hct 39.0 37.7 (35.3-44.9) % Plt Count 166 (140-400) K/mcL Neutrophils # 8.6 (1.6-8.9) K/mcL BMP 12/20/16 05:25 Sodium 141 Potassium 4.3 Chloride 99 Carbon Dioxide 34 H BUN 17 Creatinine 0.84 Glucose 112 H Calcium 9.1 Cardiac Enzymes 12/19/16 12/20/16 Range/Units 23:56 05:25 Troponin I 0.05 H* 0.04 H* (0-0.03) ng/mL Liver Function 12/20/16 Range/Units 05:25 Total Bilirubin 0.3 (0.2-1.2) mg/dL AST 12 (5-34) Units/L ALT 15 (0-55) Units/L Alkaline Phosphatase 88 (38-126) Units/L Albumin 3.1 L (3.5-5.0) g/dL - ABG Interpretation ABG results: ABG ABG pH 7.33 pH Units (7.32-7.45) 12/20/16 06:34 ABG pCO2 75 mmHg (35-45) H* 12/20/16 06:34 ABG pO2 93 mmHg (85-104) 12/20/16 06:34 ABG O2 Saturation 97 % (95-98) 12/20/16 06:34 PT/INR, D-dimer PT 12.0 Seconds (9.4-12.1) 12/20/16 05:25 Consult Discharge Plan - Plan Referrals: Flor Nassar, [place] [Primary Care Provider] -
[2016-12-20] MEDS: Insulin LISPRO 300 UNITS/3 ML VIAL SQ SCH ×2 (16:27→20:36)
[2016-12-20 16:57] LABS: ABG Base Excess 11.1 mEq/L (-2.0 to 3.0); ABG HCO3 39.5 mEQ/L (21-27); ABG Oxygen Saturation 91 % (95-98); ABG PH 7.33 pH Units (7.32-7.45); ABG PO2 64 mmHg (85-104); ABG TCO2 41.8 mEq/L (20-26)
[2016-12-20 16:58] LABS: Blood Gas FiO2 40 %
[2016-12-20 16:59] LABS: ABG PCO2 75 mmHg (35-45)
--- NOTE | 2016-12-20 20:40 | Event Note ---
Date of Encounter: 12/20/16 Time of Encounter: 20:39 I was called by the patient's nurse to evaluate this patient for low oxygen saturation and unresponsiveness. He was admitted to our service yesterday for management of acute and chronic heart failure and pleural effusion as well as acute and chronic hypoxic respiratory failure. Patient appears difficult to arouse, she is on BiPAP. Pupillary response is sluggish. Lungs sounds revealed bilateral wheezes. Plan: I have administered 0.8 mg of Narcan emergently and patient arouse became agitated. We took the BiPAP off and patient was able to cough and clear some thick secretions. I will obtain ABG, chest x-ray and transfer patient to stepdown. We will continue the BiPAP and repeat ABG and 2 hours.
[2016-12-20] MEDS: Naloxone 0.4 MG/ML INJ IVP PRN ×2 (20:51→20:52)
[2016-12-20 21:09] LABS: ABG Base Excess 14.9 mEq/L (-2.0 to 3.0); ABG HCO3 44.8 mEQ/L (21-27); ABG Oxygen Saturation 93 % (95-98); ABG PH 7.31 pH Units (7.32-7.45); ABG PO2 74 mmHg (85-104); ABG TCO2 47.5 mEq/L (20-26); Blood Gas FiO2 40 %
[2016-12-20 21:10] LABS: ABG PCO2 89 mmHg (35-45)
[2016-12-21 02:00] LABS: ABG Base Excess 13.5 mEq/L (-2.0 to 3.0); ABG HCO3 41.8 mEQ/L (21-27); ABG Oxygen Saturation 96 % (95-98); ABG PH 7.36 pH Units (7.32-7.45); ABG PO2 84 mmHg (85-104); ABG TCO2 44.1 mEq/L (20-26)
[2016-12-21 02:08] LABS: Blood Gas FiO2 40 %
[2016-12-21 02:09] LABS: ABG PCO2 74 mmHg (35-45)
[2016-12-21 04:31] LABS: Hemoglobin A1C 5.7 %
[2016-12-21] MEDS: Ipratropium/Albuterol Neb 3 ML IH SCH ×6 (06:22→23:11)
--- NOTE | 2016-12-21 07:14 | Venous Imaging Report ---
LE Venous Duplex Patient Name:Deysi Barrera Order Number:[id number] Procedure Date:12/20/2016 Date:1950ge:66 yrs Gender:Female Location:[facility] Room #: 3B36 Advertising Campaign Manager:Sachi Marie Referring MD:Rony Whitney CNP ribbon winder:None Reading MD:Cristian Rashid MD Primary Indications:Bilateral pedal edema Secondary Indications: Impressions: Normal bilateral lower extremity deep and superficial venous exam. Findings Prior Study: No prior study available for comparison. Lower Extremity Venous Duplex Side Vein Compress Spontaneous Flow Augment Diameter (cm) Depth (cm) Left Common Femoral Normal Yes Phasic Yes Left Superficial Femoral Normal Yes Phasic Yes Left Popliteal Normal Yes Phasic Yes Left Posterior Tibial Normal Yes Phasic Yes Left Peroneal Normal Yes Phasic Yes Left Saphenofemoral [place] Normal Yes Phasic Yes Left Great Saphenous Normal Yes Phasic Yes Left Lesser Saphenous Normal Yes Phasic Yes Right Distal [place]liac Normal Yes Phasic Yes Right Common Femoral Normal Yes Phasic Yes Right Superficial Femoral Normal Yes Phasic Yes Right Popliteal Normal Yes Phasic Yes Right Posterior Tibial Normal Yes Phasic Yes Right Peroneal Normal Yes Phasic Yes Right Saphenofemoral [place] Normal Yes Phasic Yes Right Great Saphenous Normal Yes Phasic Yes Right Lesser Saphenous Normal Yes Phasic Yes Left Distal Iliac Normal Yes Phasic Yes Updated by Cristian Rashid MD on 12/21/2016 7:10:05 AM electronically signed on 12/21/2016 7:10:20 AM with status of Final
[2016-12-21] MEDS: Furosemide 40 MG/4 ML VIAL IVP SCH (07:35)
[2016-12-21] MEDS: Pregabalin 75 MG CAPSULE PO SCH ×3 (07:36→20:04)
[2016-12-21] MEDS: Celecoxib 100 MG CAPSULE PO SCH (07:36)
[2016-12-21] MEDS: *HR* OxyCODONE/APAP 5/325 TABLET PO PRN ×3 (07:36→23:18)
[2016-12-21] MEDS: Pantoprazole 40 MG VIAL IVP SCH (07:36)
[2016-12-21] MEDS: Insulin LISPRO 300 UNITS/3 ML VIAL SQ SCH ×4 (07:37→23:20)
[2016-12-21] MEDS: Budesonide/Formoterol 160/4.5 MDI IH SCH ×2 (07:41→20:16)
[2016-12-21 08:19] LABS: Basophils % 0.5 %; Immature Granulocytes % 0.4 % (0-4)
[2016-12-21 08:21] LABS: Basophils # 0.1 K/mcL (0.0-0.2); Eosinophils # 0.1 K/mcL (0.0-0.6); Eosinophils % 0.8 %; Hematocrit 37.1 % (35.3-44.9); Hemoglobin 10.8 g/dL (11.5-15.4); Lymphocytes # 2.4 K/mcL (0.6-4.6); Lymphocytes % 21.2 %; Mean Corpuscular HGB Conc 29.1 g/dL (31.6-35.5); Mean Corpuscular Hemoglobin 26.4 pg (28.0-33.3); Mean Corpuscular Volume 90.7 fL (83.0-100.0); Monocytes # 0.9 K/mcL (0.0-1.3); Monocytes % 7.7 %; Neutrophils # 7.7 K/mcL (1.6-8.9); Platelet Count 174 K/mcL (140-400); Red Blood Count 4.09 M/mcL (3.82-4.97); Red Cell Distribution Width 16.4 % (11.5-14.5); Segmented Neutrophils % 69.4 %
[2016-12-21 08:47] LABS: BUN/Creatinine Ratio 27 (6-26); Blood Urea Nitrogen 21 mg/dL (7-20); Calcium 9.2 mg/dL (8.6-10.8); Carbon Dioxide 35 mEq/L (19-29); Chloride 100 mEq/L (98-109); Glucose 90 mg/dL (70-99); Magnesium 2.4 mg/dL (1.6-2.6); Osmolality,Calculated 299 (280-300); Potassium 4.2 mEq/L (3.5-4.5); Sodium 143 mEq/L (136-145); eGFR For African Americans > 60 (> 60); eGFR For Non-African Americans > 60 (> 60)
--- NOTE | 2016-12-21 08:53 | Internal Med Progress Note ---
Date of Encounter: 12/21/16 Time of Encounter: 08:50 - Assessment and plan (1) Acute exacerbation of chronic obstructive airways disease Current Visit: Yes Status: Acute Assessment and plan: Patient was noted to have hypoxemia along with lethargy and decreased responsiveness overnight and has been transferred to stepdown unit, has been placed on continuous BiPAP as well as she would comply with it and repeat ABG shows improved PH with elevated PCO2, which is likely her baseline. Continue scheduled bronchodilators and supplemental O2; steroids have been held due to acute CHF and volume overload. continue Symbicort; Patient is noted to have CPAP at home with which she is not compliant and she does have limited compliance overall with her medical regimen. We will consult pulmonology for further recommendations regarding possibly changing over to to BiPAP at home. Physical and occupation therapy evaluation. High risk for complications including worsening respiratory failure and possibly requiring intubation and mechanical ventilation. (2) Acute diastolic (congestive) heart failure Current Visit: Yes Status: Acute Assessment and plan: Continue Lasix, along with fluid restriction and monitor urine output. Will switch to oral Lasix today. BiPAp support as above. Check 2D Echocardiogram. Patient was noted to be refusing echocardiogram and wanting to leave AGAINST MEDICAL ADVICE earlier today and later agreed to stay. (3) Diabetes mellitus Current Visit: Yes Status: Ruled-out Assessment and plan: Patient insists that she is not a diabetic and has never been on diabetic medication. Hemoglobin A1c noted to be 5.7%, blood sugars noted to be better controlled today. Hold off on insulin at this time. Qualifiers: Diabetes mellitus type: type 2 Diabetes mellitus complication status: with hyperglycemia Diabetes mellitus fdc insulin use: without termite control representative use Qualified Code(s): E11.65 - Type 2 diabetes mellitus with hyperglycemia (4) HOWARD (obstructive sleep apnea) Current Visit: Yes Status: Chronic (5) Acute and chronic respiratory failure Current Visit: Yes Status: Chronic Qualifiers: Respiratory failure complication: hypoxia and hypercapnia Qualified Code(s) : J96.21 - Acute and chronic respiratory failure with hypoxia; J96.22 - Acute and chronic respiratory failure with hypercapnia (6) Hypertension Current Visit: Yes Status: Chronic Qualifiers: Hypertension type: essential hypertension Qualified Code(s): I10 - Essential (primary) hypertension - Subjective Interval history: Alert and awake today, able to communicate well. Reports feeling better; improving shortness of breath and leg swelling; persistent cough with clear sputum; no fever/chills; has been transferred to step-down unit last night due to low O2 sats and unresponsiveness; has been intermittently on BiPAP through the night and improved currently; - Constitutional Vitals: Temp Pulse Resp BP Pulse Ox 98.1 F 77 19 120/72 94 12/21/16 07:51 12/21/16 03:50 12/21/16 07:51 12/21/16 07:51 12/21/16 07:45 General appearance: Present: A&O X 3, obese, answers questions appropriately - Respiratory Respiratory exam: Present: CTAB, rales (bibasal crackles), rhonchi (scattered rhonchi). Absent: accessory muscle use, wheezes - Cardiovascular Cardiovascular exam: Present: RRR, +S1, +S2. Absent: diastolic murmur, gallop, rubs, systolic murmur - GI/Abdominal GI/Abdominal exam: Present: normal bowel sounds, soft (obese), no peritoneal signs. Absent: distended, tenderness - Extremities Exam Extremities exam: Present: full ROM, pedal edema (improving), warm, radial pulses palpable and symetrical. Absent: calf tenderness, cyanotic - Neurological Exam Neurological exam: Present: CN II-XII intact, oriented X3, no focal deficits. Absent: pronater drift, facial droop, speech deficit - Skin Skin exam: Present: dry, intact Internal Medicine: Result - Labs CBC & Chem 7: 12/21/16 08:09 12/21/16 08:09 Labs: Short CBC 12/21/16 Range/Units 08:09 WBC 11.1 (4.3-11.1) K/mcL Hgb 10.8 L (11.5-15.4) g/dL Hct 37.1 (35.3-44.9) % Plt Count 174 (140-400) K/mcL BMP 12/21/16 08:09 Sodium 143 Potassium 4.2 Chloride 100 Carbon Dioxide 35 H BUN 21 H Creatinine 0.78 Glucose 90 Calcium 9.2 - ABG Interpretation ABG results: ABG ABG pH 7.36 pH Units (7.32-7.45) 12/21/16 01:45 ABG pCO2 74 mmHg (35-45) H* 12/21/16 01:45 ABG pO2 84 mmHg (85-104) L 12/21/16 01:45 ABG O2 Saturation 96 % (95-98) 12/21/16 01:45 PT/INR, D-dimer PT 12.0 Seconds (9.4-12.1) 12/20/16 05:25 - Impressions Impressions Chest X-Ray 12/20/16 20:32 IMPRESSION: 1. Findings suggesting pulmonary edema with silhouetting of the left hemidiaphragm likely reflecting atelectasis and effusion. D/ / Joe Augustin MD / Joe Augustin MD Interpreting Provider: Joe Augustin MD Consult Discharge Plan - Plan Referrals: Flor Nassar CNP [Primary Care Provider] - 12/30/16 8:40 am
[2016-12-21 09:16] LABS: Hypochromasia Present (Not Present); Platelet Estimate Normal (Normal); Polychromasia 1+ (Not Present)
[2016-12-21] MEDS: Furosemide 40 MG TABLET PO SCH (16:13)
--- NOTE | 2016-12-21 17:15 | Pulmonology Consult Note ---
Date of Encounter: 12/21/16 Time of Encounter: 15:45 Assessment and Plan (1) Acute exacerbation of chronic obstructive airways disease Current Visit: Yes Status: Suspected Patient is feeling better and continue current treatment with outpatient follow- up. Titrate FiO2 to keep SPO2 around 90%. I advised patient to use her BiPAP for HOWARD as well as chronic respiratory failure. (2) HOWARD (obstructive sleep apnea) Current Visit: Yes Status: Chronic I have reviewed her record and patient should be tried on hospital BiPAP. I have ordered BiPAP 18/14 cm water pressure and social workers to fax it to her DME. Patient needs to keep outpatient follow-up to establish compliancy. (3) Tobacco abuse Current Visit: No Status: Chronic Patient was advised to quit smoking (4) Acute and chronic respiratory failure Current Visit: Yes Status: Chronic Advised patient to be compliant with her BiPAP therapy Qualifiers: Respiratory failure complication: hypoxia and hypercapnia Qualified Code(s) : J96.21 - Acute and chronic respiratory failure with hypoxia; J96.22 - Acute and chronic respiratory failure with hypercapnia History of Present Illness Consult date: 12/21/16 Requesting physician: Adore Duarte Reason for consult: COPD, obstructive sleep apnea Chief complaint: Hemoptysis or shortness of breath History of present illness: This is a pleasant 66-year-old female with significant smoking history and continued to smoke and diagnosis of severe COPD with multiple medical problems. Overall patient is poor historian and she is asking her daughter that she wants to go home and not able to get a reliable history. Patient is not sure on what is her therapy for her HOWARD, however according to the records in her chart from outpatient it indicates she was tried on auto BiPAP. Patient denies any hemoptysis at this time but she does have worsening of dyspnea and also she was found to have fever. She uses home oxygen at home 2-2.5 lpm. She denies any chest pain and no nausea or vomiting. Patient was treated for CHF exacerbation and COPD exacerbation and she is feeling better. She also has wheezing and productive cough which is worse than her baseline. She is not compliant with her treatment for obstructive sleep apnea due to not tolerating mask according to the daughter and also pressure. Past Med Surg Social Fam HX - Past Medical History Medical history: aortic aneurysm, arthritis, asthma, COPD, diabetes, hyperlipidemia, hypertension, other Psychiatric history: anxiety, depression - Past Surgical History Surgical History: other (Carpal tunnel and cervical disc) - Social History Smoking Status: Current every day smoker Packs per day: 1/2 PPD Smokeless Tobacco Status: No Alcohol use: occasionally Drug use: none - Family History Father Race: Family Member Ethnicity: Non- Living Status: Age at : 72 Cause of : [place] Hx Family Cardiac Disorders: Yes ([place]) Brother Race: Family Member Ethnicity: Non- Living Status: Still Living Age at : 44 Cause of : [place] Hx Family Cardiac Disorders: Yes ([place]) Sister Race: Family Member Ethnicity: Non- Living Status: Still Living Hx Family Cancer: Yes (Breast) Mother Adopted: No Race: Family Member Ethnicity: Non- Living Status: Age at : 44 Cause of : Car accident Hx Family Cardiac Disorders: No Hx Family Respiratory Disorders: No Hx Family Cancer: No Hx Family Endocrine Disorder: Yes (thyroid) Medications and Allergies Albuterol Sulfate [Proair Hfa] 2 puff IH PRN PRN 09/16/15 [History] Lansoprazole [Prevacid] 30 mg PO HS 09/16/15 [History] Pregabalin [Lyrica] 150 mg PO TID 09/16/15 [History] Tiotropium [Spiriva] 1 cap IH DAILY 09/16/15 [History] Albuterol Neb [Proventil Neb] 2.5 mg IH Q4H PRN 08/17/16 [History] Simvastatin [Zocor] 20 mg PO HS 08/17/16 [History] rOPINIRole [Requip] 3 mg PO BID 08/17/16 [History] Ipratropium/Albuterol Sulfate [Combivent Respimat Inhal [place]] 1 puff IH QID PRN 09/13/16 [History] Potassium Chloride [Klor-Con 10] 10 meq PO HS 09/13/16 [History] amLODIPine [Norvasc] 5 mg PO DAILY PRN 09/13/16 [History] Budesonide/Formoterol 160/4.5 [Symbicort 160/4.5] 2 puff IH BIDR 10/07/16 [ History] Furosemide [Lasix] 40 mg PO DAILY 10/07/16 [History] Celecoxib [Celebrex] 200 mg PO DAILY 05/28/17 [History] Oxygen 2.5 l IN CONT 12/19/16 [History] Docusate [Colace] 100 mg PO BID PRN 12/20/16 [History] Loratadine [Allergy Relief] 10 mg PO DAILY 12/20/16 [History] Oxycodone HCl [Oxycodone HCl ER] 15 mg PO Q6H PRN 12/20/16 [History] PredniSONE [Dario] 5 mg PO DAILY 12/20/16 [History] clonazePAM [Klonopin] 0.5 mg PO DAILY 12/20/16 [History] hydroCHLOROthiazide [Hydrochlorothiazide] 25 mg PO DAILY 12/20/16 [History] Allergies No Known Allergies Allergy (Verified 12/19/16 19:30) All Systems: A 10-system review of systems was performed and is negative for pertinent findings except as documented above in the HPI. Physical Examination Vital Signs: Vital Signs, Last 4 Hours Temp Pulse Resp BP Pulse Ox 12/21/16 16:30 97.9 F 81 17 110/55 86 12/21/16 16:15 98.1 F 77 15 120/72 95 12/21/16 15:26 15 95 General appearance: appears uncomfortable (Talking to her daughter and she is demanding to go home) Eyes: nonicteric ENT: oropharynx dry Mallampati (class): 4 Neck: supple, no lymphadenopathy, no JVD Effort: mildly labored Auscultation: bilateral: diminished breath sounds Percussion: bilateral: not dull Cardiovascular: regular rate and rhythm Gastrointestinal: normoactive bowel sounds, soft, non-tender Extremities: cyanosis, edema normal mental status, non-focal exam anxious Results - Laboratory Findings CBC and BMP: 12/21/16 08:09 12/21/16 08:09 ABG ABG pH 7.36 pH Units (7.32-7.45) 12/21/16 01:45 ABG pCO2 74 mmHg (35-45) H* 12/21/16 01:45 ABG pO2 84 mmHg (85-104) L 12/21/16 01:45 ABG O2 Saturation 96 % (95-98) 12/21/16 01:45 PT/INR, D-dimer PT 12.0 Seconds (9.4-12.1) 12/20/16 05:25 Abnormal lab findings: Abnormal lab results Hgb 10.8 g/dL (11.5-15.4) L 12/21/16 08:09 MCH 26.4 pg (28.0-33.3) L 12/21/16 08:09 MCHC 29.1 g/dL (31.6-35.5) L 12/21/16 08:09 RDW 16.4 % (11.5-14.5) H 12/21/16 08:09 Large Platelets Present (Not Present) A 12/20/16 05:25 Immature Plt Fraction 12.0 % (1.1-6.1) H 12/21/16 08:09 Polychromasia 1+ (Not Present) A 12/21/16 08:09 Hypochromasia Present (Not Present) A 12/21/16 08:09 Macrocytosis Present (Not Present) A 12/20/16 05:25 ABG pCO2 74 mmHg (35-45) H* 12/21/16 01:45 ABG pO2 84 mmHg (85-104) L 12/21/16 01:45 ABG HCO3 41.8 mEQ/L (21-27) H 12/21/16 01:45 ABG Total CO2 44.1 mEq/L (20-26) H 12/21/16 01:45 ABG Base Excess 13.5 mEq/L (-2.0 to 3.0) H 12/21/16 01:45 Carbon Dioxide 35 mEq/L (19-29) H 12/21/16 08:09 BUN 21 mg/dL (7-20) H 12/21/16 08:09 BUN/Creatinine Ratio 27 (6-26) H 12/21/16 08:09 POC Glucose 111 (58-89) H 12/20/16 20:23 Hemoglobin A1c 5.7 % (-5.6) H 12/21/16 03:49 Uric Acid 6.5 mg/dL (2.6-6.0) H 12/20/16 05:25 Troponin I 0.04 ng/mL (0-0.03) H* 12/20/16 05:25 B-Natriuretic Peptide 511 pg/mL (0-100) H 12/19/16 17:29 Albumin 3.1 g/dL (3.5-5.0) L 12/20/16 05:25 Globulin 4.2 g/dL (2.4-3.5) H 12/20/16 05:25 Albumin/Globulin Ratio 0.7 (1.1-2.2) L 12/20/16 05:25 LDL Cholesterol, Calc 110 mg/dL (0-99) H 12/20/16 05:25 - Diagnostic Findings Chest x-ray: report reviewed, image reviewed - Clinical Findings Intake & Output: Intake & Output 12/21/16 12/21/16 12/21/16 07:59 15:59 23:59 Intake Total 0 / 0 480 / 480 480 / 480 Output Total 875 / 875 750 / 750 300 / 300 Balance -875 / -875 -270 / -270 180 / 180 Weight 114.1 kg Consult Discharge Plan - Plan Referrals: Flor Nassar, MEDICAL ASSEMBLER [Primary Care Provider] - 12/30/16 8:40 am
--- NOTE | 2016-12-21 17:54 | Electrocardiograph Report ---
[address] [address] Test Date: 2016-12-19 Pat Name: Deysi Barrera Department: 105 Room: 2N03 Gender: F Client Service Supervisor: YANDEL : 1950 Requested By: Juliann Charles Order Number: [id number] Reading MD: Komal Medellin Measurements Intervals [place] Rate: 73 P: 61 [place]: 172 QRS: 86 QRSD: 94 T: 54 QT: 361 QTc: 387 Interpretive Statements SINUS RHYTHM WITH OCCASIONAL SUPRAVENTRICULAR PREMATURE COMPLEXES LOW QRS VOLTAGE IN PRECORDIAL LEADS PATTERN CONSISTENT WITH PULMONARY DISEASE Electronically Signed On 12-21-2016 17:52:44 EDT by Komal Medellin
[2016-12-22] MEDS: Ipratropium/Albuterol Neb 3 ML IH SCH ×6 (03:39→23:06)
[2016-12-22] MEDS: *HR* OxyCODONE/APAP 5/325 TABLET PO PRN ×2 (05:37→15:44)
[2016-12-22 07:26] VITALS: BP 111/64
[2016-12-22] MEDS: Budesonide/Formoterol 160/4.5 MDI IH SCH ×2 (07:48→19:59)
[2016-12-22] MEDS: Furosemide 40 MG TABLET PO SCH (08:04)
[2016-12-22] MEDS: Pantoprazole 40 MG VIAL IVP SCH (08:04)
[2016-12-22] MEDS: Pregabalin 75 MG CAPSULE PO SCH ×2 (08:04→15:44)
[2016-12-22] MEDS: Celecoxib 100 MG CAPSULE PO SCH (08:04)
--- NOTE | 2016-12-22 10:01 | Discharge Summary ---
Date of Encounter: 12/22/16 Time of Encounter: 09:30 - Discharge Diagnosis (1) Acute exacerbation of chronic obstructive airways disease Priority: Primary Status: Resolved (2) Acute diastolic (congestive) heart failure Priority: Primary Status: Acute (3) Diabetes mellitus Priority: Secondary Status: Ruled-out Qualifiers: Diabetes mellitus type: type 2 Diabetes mellitus complication status: with hyperglycemia Diabetes mellitus rat exterminator insulin use: without rat exterminator use Qualified Code(s): E11.65 - Type 2 diabetes mellitus with hyperglycemia (4) HOWARD (obstructive sleep apnea) Priority: Secondary Status: Chronic (5) Acute and chronic respiratory failure Priority: Secondary Status: Chronic Qualifiers: Respiratory failure complication: hypoxia and hypercapnia Qualified Code(s) : J96.21 - Acute and chronic respiratory failure with hypoxia; J96.22 - Acute and chronic respiratory failure with hypercapnia (6) Hypertension Priority: Secondary Status: Chronic Qualifiers: Hypertension type: essential hypertension Qualified Code(s): I10 - Essential (primary) hypertension - Discharge Medications Prescriptions: Amoxicillin/Clavulanate [Augmentin] 875 mg PO BIDWM #10 tablet predniSONE [PredniSONE] 40 mg PO DAILY 7 Days Home Medications: Albuterol Sulfate [Proair Hfa] 2 puff IH PRN PRN 09/16/15 [History] Lansoprazole [Prevacid] 30 mg PO HS 09/16/15 [History] Pregabalin [Lyrica] 150 mg PO TID 09/16/15 [History] Tiotropium [Spiriva] 1 cap IH DAILY 09/16/15 [History] Albuterol Neb [Proventil Neb] 2.5 mg IH Q4H PRN 08/17/16 [History] Simvastatin [Zocor] 20 mg PO HS 08/17/16 [History] rOPINIRole [Requip] 3 mg PO BID 08/17/16 [History] Ipratropium/Albuterol Sulfate [Combivent Respimat Inhal [place]] 1 puff IH QID PRN 09/13/16 [History] Potassium Chloride [Klor-Con 10] 10 meq PO HS 09/13/16 [History] amLODIPine [Norvasc] 5 mg PO DAILY PRN 09/13/16 [History] Budesonide/Formoterol 160/4.5 [Symbicort 160/4.5] 2 puff IH BIDR 10/07/16 [ History] Furosemide [Lasix] 40 mg PO DAILY 10/07/16 [History] Celecoxib [Celebrex] 200 mg PO DAILY 12/19/16 [History] Oxygen 2.5 l IN CONT 12/19/16 [History] Docusate [Colace] 100 mg PO BID PRN 12/20/16 [History] Loratadine [Allergy Relief] 10 mg PO DAILY 12/20/16 [History] Oxycodone HCl [Oxycodone HCl ER] 15 mg PO Q6H PRN 12/20/16 [History] clonazePAM [Klonopin] 0.5 mg PO DAILY 12/20/16 [History] Amoxicillin/Clavulanate [Augmentin] 875 mg PO BIDWM #10 tablet 12/22/16 [Rx] predniSONE [PredniSONE] 40 mg PO DAILY 7 Days 12/22/16 [Rx] Allergies/Adverse Reactions: Allergies No Known Allergies Allergy (Verified 12/19/16 19:30) Procedures/tests Complete & Pending: Procedures Performed prior 72 hours Category Date Time Status EV venous imaging LE BI Routine Y 12/20/16 22:56 Completed Date of admission: 12/19/16 19:41 Primary care physician: Flor Nassar CNP Consults: 12/19/16 20:09 Consult to Occupational Therapy [CONS] Routine Comment: Evaluate, develop and implement POC Reason for Consult: 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 and has difficulty walking Consult to Physical Therapy [CONS] Routine Comment: Evaluate, develop and implement POC Reason for Consult: 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 and has difficulty walking 12/19/16 20:11 Consult to Respiratory Therapy [CONS] Routine Reason for Consult: Patient on home O2 with low O2 sats Call Completed: No 12/19/16 20:47 Consult to Veneer Sawyer [CONS] Routine Reason for SW Consult: resume services 12/19/16 22:52 consult to saas architect [Consult to Nutrition] [CONS] Routine Comment: Consulting Provider: NUTRITION Reason for Dietary Consult: Diet Education 12/21/16 08:49 Consult to Pulmonology [CONS] Routine Consulting Provider: Pulm [facility] Reason for Consult: Severe COPD, CO2 narcosis, noncompliance, likely change to BiPAP from CPAP Call Completed: Yes Discharging clinician: Adore Duarte Anticipated date of discharge: 12/22/16 - Patient Status Disposition: Home Health Service Condition: Undetermined Functional capacity at discharge: uses cane/walker Overall status at discharge: patient is progressing back to baseline - Discharge Instructions Instructions: Prednisone (By mouth), Heart Failure (DC), Acute Respiratory Distress Syndrome (DC), Chronic Obstructive Pulmonary Disease (DC) Follow Up With: Denia Rivera MD [Partnered Physician] - 03/02/17 11:15 am Flor Nassar CNP [Primary Care Provider] - 12/30/16 8:40 am Forms: ED Satisfaction Letter Additional Instructions: F/up with for BiPAP titration and followup care - Diet and Activity Activity: resume usual activities as tolerated, wear oxygen at all times, other (wear BiPAP at night; CPAP is changed to BiPAP) Diet: low fat, low cholesterol, low salt diet Hospital course: Ms. Barrera is a 66 year old female with history of severe COPD, chronic tobacco abuse, CHF was initially admitted with worsening shortness of breath and leg swelling and was treated for acute exacerbation of CHF. She was started on IV diuretics along with fluid restriction, urine output monitoring and telemetry monitoring. She possibly also had a complement of a cute COPD and was started on scheduled bronchodilators along with supplemental oxygen. Steroids were deferred due to concomitant CHF. Patient was noted to be lethargic with hypoxic/hypercapnic respiratory failure and required continuous BiPAP support. She was however, noncompliant with this and was noted to become more lethargic with desaturation and was transferred to stepdown unit during this hospitalization. Patient improved by the next morning with continuous BiPAP support along with anxiolytics. Pulmonology was consulted, she was evaluated and prescribed home BiPAP after overnight BiPAP qualification study. Compliance was reinforced by multiple providers multiple times. Smoking cessation counseling was also given , although patient is currently not motivated to quit smoking. She remained hemodynamically stable and is stable for discharge with oral steroids, diuretics , supplemental oxygen and BiPAP support at home. Referral for home health services including visiting nurse services has been completed. Just prior to discharge, family noticed that patient has painful areas on medial right knee and left popliteal fossa at IV site. She was evaluated and noted to have mild cellulitis with pustule related to recent IV insertion in left popliteal fossa. She had no fever or leukocytosis and is being discharged on oral Augmentin with outpatient follow-up. Time spent discussing smoking cessation with patient: 3 to 10 minutes (4min) - Time Spent with Patient Total time spent providing and/or coordinating discharge services: Greater than 30 minutes (50 min) - Constitutional Vitals: Temp Pulse Resp BP Pulse Ox 98.1 F 77 18 111/64 92 12/22/16 08:05 12/22/16 08:05 12/22/16 08:05 12/22/16 08:05 12/22/16 08:05 General appearance: Present: A&O X 3, obese, answers questions appropriately - Respiratory Respiratory exam: Present: CTAB, rhonchi (B/L scattered rhonchi). Absent: accessory muscle use, rales, wheezes - Cardiovascular Cardiovascular exam: Present: RRR, +S1, +S2. Absent: diastolic murmur, gallop, rubs, systolic murmur
--- NOTE | 2016-12-22 10:03 | Physician Discharge Referral ---
Home Health/Hosp Referral Info Transfer to: Home Health Attending Provider: Adore Duarte Provider in Charge Post Discharge: PCP - Diagnosis (1) Acute exacerbation of chronic obstructive airways disease Priority: Primary Status: Acute (2) Acute diastolic (congestive) heart failure Priority: Primary Status: Acute (3) Diabetes mellitus Priority: Primary Status: Ruled-out (4) HOWARD (obstructive sleep apnea) Priority: Secondary Status: Chronic (5) Acute and chronic respiratory failure Priority: Secondary Status: Chronic (6) Hypertension Priority: Secondary Status: Chronic - Respiratory Orders Oxygen / L per min (2-3L/min via [place]) Smoking Cessation: Smoking cessation has been advised. For more information, call the [place] Tobacco Quit Line at 0-452-QQDI-NOW. - Diet/Nutrition Diet/Nutrition Orders: Cardiac - Activity Activity Orders: Ambulate, Walker - Services Needed Following services are medically necessary services: Nursing, Home Health Aide - Transfer Medications Prescriptions: predniSONE [PredniSONE] 40 mg PO DAILY 7 Days Home Medications: Albuterol Sulfate [Proair Hfa] 2 puff IH PRN PRN 09/16/15 [History] Lansoprazole [Prevacid] 30 mg PO HS 09/16/15 [History] Pregabalin [Lyrica] 150 mg PO TID 09/16/15 [History] Tiotropium [Spiriva] 1 cap IH DAILY 09/16/15 [History] Albuterol Neb [Proventil Neb] 2.5 mg IH Q4H PRN 08/17/16 [History] Simvastatin [Zocor] 20 mg PO HS 08/17/16 [History] rOPINIRole [Requip] 3 mg PO BID 08/17/16 [History] Ipratropium/Albuterol Sulfate [Combivent Respimat Inhal [place]] 1 puff IH QID PRN 09/13/16 [History] Potassium Chloride [Klor-Con 10] 10 meq PO HS 09/13/16 [History] amLODIPine [Norvasc] 5 mg PO DAILY PRN 09/13/16 [History] Budesonide/Formoterol 160/4.5 [Symbicort 160/4.5] 2 puff IH BIDR 10/07/16 [ History] Furosemide [Lasix] 40 mg PO DAILY 10/07/16 [History] Celecoxib [Celebrex] 200 mg PO DAILY 12/19/16 [History] Oxygen 2.5 l IN CONT 12/19/16 [History] Docusate [Colace] 100 mg PO BID PRN 12/20/16 [History] Loratadine [Allergy Relief] 10 mg PO DAILY 12/20/16 [History] Oxycodone HCl [Oxycodone HCl ER] 15 mg PO Q6H PRN 12/20/16 [History] clonazePAM [Klonopin] 0.5 mg PO DAILY 12/20/16 [History] predniSONE [PredniSONE] 40 mg PO DAILY 7 Days 12/22/16 [Rx] Allergies/Adverse Reactions: Allergies No Known Allergies Allergy (Verified 12/19/16 19:30) Certification: Further, I certify that my clinical findings support that this patient is homebound (i.e. absences from home require considerable and taxing effort and are for medical reasons or mu-ism services or infrequently or short duration when for other reasons) because: Homebound Reason: Patient requires assistance of a person or device to safely leave home, Severity of cardiac or pulmonary status limits activity tolerance Attestation: My signature below is to certify that this patient is under my care and that I, or nurse practitioner, or a physician's registered dental assistant working with me, has a face-to -face encounter with this patient.
--- NOTE | 2016-12-22 11:58 | Pulmonology Progress Note ---
Date of Encounter: 12/22/16 Time of Encounter: 09:50 Assessment and Plan (1) Acute exacerbation of chronic obstructive airways disease Current Visit: Yes Status: Resolved Patient is a stable and and plan she will be discharged home continue bronchodilators and quit smoking (2) HOWARD (obstructive sleep apnea) Current Visit: Yes Status: Chronic Tolerating BiPAP and order was given to the social worker masters to be sent to [facility] and then follow-up in the clinic (3) Tobacco abuse Current Visit: No Status: Chronic Smoking cessation (4) Acute and chronic respiratory failure Current Visit: Yes Status: Chronic Qualifiers: Respiratory failure complication: hypoxia and hypercapnia Qualified Code(s) : J96.21 - Acute and chronic respiratory failure with hypoxia; J96.22 - Acute and chronic respiratory failure with hypercapnia Subjective Principal diagnosis: Dyspareunia Interval history: No significant events and according to the nurse patient tolerated BiPAP Objective PUL Vital signs: Last Vital Signs Temp 98.1 F 12/22/16 08:05 Pulse 77 12/22/16 09:42 Resp 18 12/22/16 09:42 BP 111/64 12/22/16 09:42 Pulse Ox 92 12/22/16 09:42 General appearance: no acute distress Eyes: nonicteric ENT: oropharynx moist Mallampati (class): 4 Neck: supple Effort: mildly labored Auscultation: bilateral: diminished breath sounds Percussion: bilateral: not dull Cardiovascular: regular rate and rhythm Gastrointestinal: normoactive bowel sounds Extremities: edema normal mental status, non-focal exam Results - Laboratory Findings CBC and BMP: 12/21/16 08:09 12/21/16 08:09 ABG ABG pH 7.36 pH Units (7.32-7.45) 12/21/16 01:45 ABG pCO2 74 mmHg (35-45) H* 12/21/16 01:45 ABG pO2 84 mmHg (85-104) L 12/21/16 01:45 ABG O2 Saturation 96 % (95-98) 12/21/16 01:45 PT/INR, D-dimer PT 12.0 Seconds (9.4-12.1) 12/20/16 05:25 Abnormal lab findings: Abnormal lab results Hgb 10.8 g/dL (11.5-15.4) L 12/21/16 08:09 MCH 26.4 pg (28.0-33.3) L 12/21/16 08:09 MCHC 29.1 g/dL (31.6-35.5) L 12/21/16 08:09 RDW 16.4 % (11.5-14.5) H 12/21/16 08:09 Large Platelets Present (Not Present) A 12/20/16 05:25 Immature Plt Fraction 12.0 % (1.1-6.1) H 12/21/16 08:09 Polychromasia 1+ (Not Present) A 12/21/16 08:09 Hypochromasia Present (Not Present) A 12/21/16 08:09 Macrocytosis Present (Not Present) A 12/20/16 05:25 ABG pCO2 74 mmHg (35-45) H* 12/21/16 01:45 ABG pO2 84 mmHg (85-104) L 12/21/16 01:45 ABG HCO3 41.8 mEQ/L (21-27) H 12/21/16 01:45 ABG Total CO2 44.1 mEq/L (20-26) H 12/21/16 01:45 ABG Base Excess 13.5 mEq/L (-2.0 to 3.0) H 12/21/16 01:45 Carbon Dioxide 35 mEq/L (19-29) H 12/21/16 08:09 BUN 21 mg/dL (7-20) H 12/21/16 08:09 BUN/Creatinine Ratio 27 (6-26) H 12/21/16 08:09 POC Glucose 133 (58-89) H 12/21/16 23:19 Hemoglobin A1c 5.7 % (-5.6) H 12/21/16 03:49 Uric Acid 6.5 mg/dL (2.6-6.0) H 12/20/16 05:25 Troponin I 0.04 ng/mL (0-0.03) H* 12/20/16 05:25 B-Natriuretic Peptide 511 pg/mL (0-100) H 12/19/16 17:29 Albumin 3.1 g/dL (3.5-5.0) L 12/20/16 05:25 Globulin 4.2 g/dL (2.4-3.5) H 12/20/16 05:25 Albumin/Globulin Ratio 0.7 (1.1-2.2) L 12/20/16 05:25 LDL Cholesterol, Calc 110 mg/dL (0-99) H 12/20/16 05:25 - Clinical Findings Intake & Output: Intake & Output 12/21/16 12/22/16 12/22/16 23:59 07:59 15:59 Intake Total 480 / 480 240 / 240 Output Total 700 / 700 300 / 300 0 / 0 Balance -220 / -220 -300 / -300 240 / 240 Weight 114.9 kg Consult Discharge Plan - Plan Instructions: Prednisone (By mouth), Heart Failure (DC), Acute Respiratory Distress Syndrome (DC), Chronic Obstructive Pulmonary Disease (DC) Additional Instructions: F/up with for BiPAP titration and followup care Referrals: Denia Rivera MD [Partnered Physician] - 03/02/17 11:15 am Flor Nassar CNP [Primary Care Provider] - 12/30/16 8:40 am Prescriptions: predniSONE [PredniSONE] 40 mg PO DAILY 7 Days
== END 2016-12-22 18:11 | disposition home health service (06) | DRG 194 ==
LOC: EMEROO 17:00 → 3BNU 17:00 → SUATTDRO 19:41 → 2NNU 12-20 22:03 → UNDODISIN 12-22 11:38
PROVIDERS: ADMIT Internal Medicine Sleep Medicine; ATTEND Internal Medicine